=== PATIENT | male | born 1970 | race African-American/Black ===

== ENCOUNTER 2020-01-07 12:14 | Outpatient (CLI) | payer OTHER, SELFPAY ==
[2020-01-07 12:50] LABS: Basophils Percent Auto 0.3 % (0.2-1.2); Eosinophils Absolute Auto 0.1 K/mm3 (0-0.3); Eosinophils Percent Auto 1.9 % (0-4.4); Hematocrit 47.2 % (42.0-52.0); Hemoglobin 15.3 g/dL (14.0-18.0); Immature Granulocyte Absolute 0.02 K/mm3 (0.00-0.031); Immature Granulocyte Percent A 0.3 % (0-0.5); Lymphocytes Absolute Auto 2.05 K/mm3 (0.9-3.2); Lymphocytes Percent Auto 35.3 % (18.3-44.2); Mean Corpuscular HGB Conc 32.4 g/dl (32-36); Mean Corpuscular Hemoglobin 29.4 pg (26-34); Mean Corpuscular Volume 90.6 fl (80-100); Mean Platelet Volume 11.7 fl (7.4-10.4); Monocytes Absolute Auto 0.6 K/mm3 (0.1-0.6); Monocytes Percent Auto 10.7 % (2.6-8.5); Neutrophils Percent Auto 51.5 % (45.5-73.1); Platelet Count Result 277 k/mm3 (150-375); Red Blood Count 5.21 M/mm3 (4.6-6.20); Red Cell Distribution Width 14.6 % (11.5-14.5); White Blood Count 5.8 K/mm3 (4.5-10.0)
[2020-01-07 13:06] LABS: Alanine Aminotransferase 30 U/L (4-50); Albumin Level 4.4 g/dL (3.5-5.1); Alkaline Phosphatase 60 U/L (38-126); Amylase 85 U/L (30-110); Anion Gap 7 mmol/L (8-16); Aspartate Amino Transferase 25 U/L (17-59); Bilirubin,Total 0.6 mg/dL (0.2-1.3); Blood Urea Nitrogen 15 mg/dL (9-20); Carbon Dioxide 32 mmol/L (22-30); Chloride 105 mmol/L (98-107); Cholesterol 268 mg/dL (0-200); Estimated Glomerular Filt Rate > 60; Glucose 117 mg/dL (75-110); HDL Direct 39 mg/dL; Lipase 56 U/L (23-300); Potassium 4.8 mmol/L (3.4-5.0); Sodium 144 mmol/L (137-145); Triglycerides 187 mg/dL (<150)
[2020-01-07 13:16] LABS: LDL Cholesterol Direct 200 mg/dL
[2020-01-07 13:35] LABS: Prostate Specific Antigen 3.5 ng/mL (< OR = 4.0)
== END 2020-01-07 12:15 | disposition home or self-care (01) ==
LOC: ANHLAB 12:17
PROVIDERS: PCP Family Medicine; Visit Provider Nurse Practitioner Family
DX: Z12.5 Encounter for screening for malignant neoplasm of prostate (principal); Z13.220 Encounter for screening for lipoid disorders; R10.9 Unspecified abdominal pain; R03.0 Elevated blood-pressure reading, without diagnosis of hypertension
CPT/HCPCS: 36415; 80053; 80061; 82150; 83690; 84153; 85025; G0103

== ENCOUNTER 2020-09-03 15:28 | Outpatient (CLI) | payer OTHER, SELFPAY ==
--- NOTE | ~2020-09-03 | CT_ITS ---
EXAMINATION: CT abdomen pelvis w con DATE: 09/03/2020 16:16 INDICATION: Right upper quadrant pain and swelling. TECHNIQUE: Computed tomography (CT) of the abdomen and pelvis was performed with 100 cc Omnipaque 350 intravenous contrast. The dose-length product was 1303.97 mGy-cm. Automated exposure control and ite rative reconstruction technique were employed. COMPARISON: None. FINDINGS: Lung bases are unremarkable. No significant pleural or pericardial effusion. Heart size is normal. No significant vascular abnormality. No lymphadenopathy. Enlarged prostate gland. Mild bladde r wall thickening. No significant perivesical fatty infiltration. Fatty infiltration of the liver. The spleen, pancreas, adrenal glands and kidneys are unremarkable. N onobstructive bowel gas pattern. Normal appendix. Small fat-containing umbilical hernia. No significa nt bone or joint abnormality. IMPRESSION: 1. Enlarged prostate gland with mild bladder wall thickening, likely due to outlet obstruction. Consi shanelle cystitis in the appropriate clinical setting. Reviewed, dictated and finalized at location A. IMPRESSION: 1. Enlarged prostate gland with mild bladder wall thickening, likely due to out let obstruction. Consider cystitis in the appropriate clinical setting.
== END 2020-09-03 15:29 | disposition home or self-care (01) ==
PROVIDERS: PCP Family Medicine; Visit Provider Nurse Practitioner Family
DX: R19.01 Right upper quadrant abdominal swelling, mass and lump (principal); N40.0 Benign prostatic hyperplasia without lower urinary tract symptoms
CPT/HCPCS: 74177; Q9967

== ENCOUNTER 2020-09-08 14:05 | Outpatient (CLI) | payer OTHER, SELFPAY ==
[2020-09-08 14:48] LABS: Add Urine Microscopic? YES; Appearance Urine Clear (Clear); Bilirubin Urine Negative (Negative); Blood Urine Negative (Negative); Color Urine Yellow (Yellow); Glucose Urine UA Negative (Negative); Ketones Urine Negative (Negative); Leukocyte Esterase Ur Negative LEU/UL (Negative); Mucus Urine Rare /lpf; Nitrate Urine Negative (Negative); Protein Urine Negative (Negative); Specific Grav Ur 1.025 (1.001-1.035); Urobilinogen Urine Negative mg/dL (<2.0); WBC Urine 0-3 /hpf
[2020-09-08 16:50] LABS: Cholesterol 294 mg/dL (0-200); Creatine Kinase 146 U/L (55-170); HDL Direct 37 mg/dL; Triglycerides 296 mg/dL (<150)
[2020-09-08 17:05] LABS: LDL Cholesterol Direct 147 mg/dL
[2020-09-08 17:22] LABS: Prostate Specific Antigen 2.8 ng/mL (< OR = 4.0)
== END 2020-09-08 14:06 | disposition home or self-care (01) ==
PROVIDERS: PCP Family Medicine; Visit Provider Nurse Practitioner Family
DX: E78.5 Hyperlipidemia, unspecified (principal); Z79.899 Other long term (current) drug therapy; Z12.5 Encounter for screening for malignant neoplasm of prostate; R39.198 Other difficulties with micturition
CPT/HCPCS: 36415; 80061; 81001; 82550; 84153; G0103

== ENCOUNTER → 2020-10-20 00:45 | Outpatient (CLI) | payer OTHER, SELFPAY ==
[2020-10-20 17:38] LABS: SARS-CoV-2 RNA PCR Negative
== END ==
PROVIDERS: PCP Family Medicine; Visit Provider Surgery
DX: Z01.812 Encounter for preprocedural laboratory examination (principal); Z20.822 Contact with and (suspected) exposure to COVID-19
CPT/HCPCS: C9803; U0003; U0005

== ENCOUNTER 2020-10-23 00:36 | Day surgery (SDC) | payer OTHER, SELFPAY ==
[2020-10-22 08:15] VITALS: BMI 32.3
[2020-10-23 10:06] VITALS: BP 139/93; PULSE 88; RESP 20; TEMP 37.3; O2SAT 100
--- NOTE | 2020-10-23 11:06 | P.PNAN_ITS ---
Anes - Initial Pre Proc Eval Procedure: Operation Date: 10/23/20 12:30 Proposed Procedures p Umbilical Hernia Repair, Possible Mesh - Chino Johnson MD Date/Time: 10/23/20 11:06 Surgeon: Chino Johnson MD Pre Op Diagnosis: umbilical hernia Patient Data Age: 50 Gender: M Height: 1.8 m Weight: 105 kg Allergies Allergy/AdvReac Type Severity Reaction Status Date / Time No Known Allergies Allergy Verified 10/22/20 08:08 Home Medications Medication Instructions Recorded Confirmed Type ascorbic acid (vitamin C) 1 g PO DAILY 10/22/20 10/22/20 History atorvastatin [Lipitor] 40 mg PO HS 10/22/20 10/22/20 History cholecalciferol (vitamin D3) 125 mcg PO DAILY 10/22/20 10/22/20 History cyanocobalamin (vitamin B-12) 2,500 mcg PO DAILY 10/22/20 10/22/20 History potassium 99 mg PO DAILY PRN 10/22/20 10/22/20 History fhdsiha-yztp-adoef-oreg-capryl 1 cap PO DAILY 10/22/20 10/22/20 History vitamin A 2,400 mcg PO DAILY 10/22/20 10/22/20 History vitamin E 180 unit PO DAILY 10/22/20 10/22/20 History Patient hx anesthesia problems: none Family hx anesthesia problems: none PMFSH Past Medical History Medical History BMI 32.0-32.9,adult Cervical pain (neck) Dietary counseling and surveillance (06/27/17) Dizziness Encounter for screening for lipoid disorders Encounter for screening for malignant neoplasm of prostate Heart palpitations Mixed hyperlipidemia Other symptoms and signs involving emotional state Weak urinary stream Surgical History Surgical History H/O left inguinal hernia repair Family History Family History Mother Hypertension Family history of diabetes mellitus in first degree relative Polyp of stomach Father Heart disease Acute myocardial infarction Sibling No problems noted. 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 Questions were solicited and answers provided to the satisfaction of the patient/family/POA.
--- NOTE | 2020-10-23 11:29 | WPDHPUPDATE1 ---
History and Physical Update Update Date/Time: 10/23/20 11:29 History and Physical has been reviewed, including an updated exam of the patient. There are NO changes in the patient's condition. Risks, benefits, and alternatives have been discussed and questions answered. Patient agrees to proceed with procedure.
[2020-10-23] MEDS: ACETAMINOPHEN 500 MG TABLET 1000 MG PO (11:36)
[2020-10-23] MEDS: LACTATED RINGERS 1,000 ML 30 ML IV CONT ×2 (11:40→13:18)
[2020-10-23] MEDS: KETOROLAC 15 MG/ML VIAL (*BKC) IV PUSH (11:42)
[2020-10-23] MEDS: ceFAZolin 2 GM/D5W 50 ML 2 GM/50 ML BAG IVPB (12:13)
[2020-10-23 13:18] VITALS: BP 131/67; PULSE 108; RESP 14; O2SAT 96
--- NOTE | 2020-10-23 13:20 | P.OP_ITS ---
Procedure Note - Detailed Date of Procedure 10/23/20 Pre-op Diagnosis umbilical hernia Post-op Diagnosis same Procedure Performed Umbilical hernia repair with 4.6 cm Parietex underlay mesh Surgeon Chino Johnson MD Bonding Agent Leland FULLER Anesthesia general and local ( 0.5% Marcaine with epinephrine) Indications patient is a 50-year-old man with a small but symptomatic reducible umbilical hernia. He was seen in the office. He is taken to surgery now for repair possibly with mesh. Findings Patient had a small umbilical hernia but somewhat thin linea alba. 4.6 cm Parietex underlay mesh was used to strengthen the repair. Description of Procedure The patient was taken to surgery and induced into anesthesia with LMA. The abdomen was prepped and draped. The proposed incision was marked along the lower margin of the umbilicus. Local anesthetic was infiltrated in the area of the anticipated incision and in the subcutaneous tissues. Incision was made and dissection through the subcutaneous was carried out. We dissected down the umbilical stalk to the fascia. We dissected around the umbilicus and found the hernia. Further dissection around the umbilicus was carried out and eventually we divided the hernia sac and freed the umbilical skin from hernia. I then trimmed hernia sac from the umbilical skin. Local was infiltrated into the neck of the hernia. Cautery was used to divide the hernia sac and the herniated contents at the fascial origin. This tissue was discarded. The defect was small but the tissues did not appear to have the integrity to hold repair without reinforcing mesh. I made the opening a bit larger. 4.6 cm Parietex tulalip was chosen. It was placed in the defect and centered appropriately. Transfascial sutures were placed in the cranial and caudal midline. Once each was placed, they were both tied down. These had the effective drawing the edges of the hernia defect wards 1 another. I then closed the hernia defect with a [id number] mattress suture of 0 Ethibond. This suture also incorporated a bit of mesh. Additional local was infiltrated all around the area of the repair. The umbilical skin was sutured to the fascia with interrupted 3 0 Vicryl suture. Subcutaneous and subcuticular interrupted 3 0 and 4 0 Vicryl sutures were then placed. The wound was dressed with Exofin surgical adhesive. The patient was awakened and taken to recovery in good condition. Sponge and needle counts were correct x2. No complications were noted. Implants 4.6 cm Parietex mesh Estimated Blood Loss 5 Drains No Packing No Pathology none sent Complications None Condition stable Disposition same day
[2020-10-23 13:48] VITALS: BP 123/65; PULSE 99; RESP 14
[2020-10-23 14:00] VITALS: BP 134/75; PULSE 89; RESP 14
== END 2020-10-23 14:09 | disposition home or self-care (01) ==
PROVIDERS: PCP Family Medicine; Visit Provider Surgery
PROC: (CPT 49585; principal; 2020-10-23 12:30)
DX: K42.9 Umbilical hernia without obstruction or gangrene (principal); E78.2 Mixed hyperlipidemia; F17.210 Nicotine dependence, cigarettes, uncomplicated; F17.290 Nicotine dependence, other tobacco product, uncomplicated; E66.9 Obesity, unspecified; Z68.32 Body mass index [BMI] 32.0-32.9, adult
CPT/HCPCS: 49585; A9270; C1781; C9803; J0690; J1885; J2250; J2704; J3010; J7120; U0003; U0005

== ENCOUNTER 2021-08-06 13:12 | Emergency (ER) | payer OTHER, SELFPAY ==
--- NOTE | ~2021-08-06 | CT_ITS ---
EXAMINATION: CT abdomen pelvis w con INDICATION: Right lower quadrant pain TECHNIQUE: Computed tomographic images of the abdomen and pelvis were obtained after the administrati on of 100 cc of Omnipaque 350 intravenous contrast. The dose-length product (DLP) was 741.30 mGy-cm. Automated exposure control and iterative reconstruction technique were employed. COMPARISON: 09/03/2020 FINDINGS: Minimal dependent atelectasis is present in the lung bases. The heart size is normal. The l iver, spleen, pancreas, gallbladder, and adrenal glands are normal. The left kidney is unremarkable. There is a 4 mm stone of the right distal ureter which causes mild right hydroureteronephrosis and mi ldly decreased perfusion of the right kidney compared to the left. The prostate is enlarged enlarged. No pathologically enlarged abdominal or pelvic lymph nodes are identified. The appendix is normal. T here is no free intraperitoneal gas or evidence of bowel obstruction. There is a left inguinal hernia containing fat. Severe lumbar spondylosis is noted at L5-S1. IMPRESSION: 1. 4 mm stone of the right distal ureter causing mild right hydroureteronephrosis and mildly decrease d perfusion of the right kidney compared to the left. Reviewed, dictated and finalized at location B. IMPRESSION: 1. 4 mm stone of the right distal ureter causing mild right hydroureteronephros is and mildly decreased perfusion of the right kidney compared to the left.
[2021-08-06 13:19] VITALS: BP 180/105; PULSE 86; RESP 20; TEMP 36.9; O2SAT 100
[2021-08-06 13:42] LABS: Basophils Percent Auto 0.6 % (0.2-1.2); Eosinophils Absolute Auto 0.1 K/mm3 (0-0.3); Eosinophils Percent Auto 1.9 % (0-4.4); Hematocrit 46.3 % (42.0-52.0); Hemoglobin 14.9 g/dL (14.0-18.0); Immature Granulocyte Absolute 0.01 K/mm3 (0.00-0.031); Immature Granulocyte Percent A 0.2 % (0-0.5); Lymphocytes Absolute Auto 2.12 K/mm3 (0.9-3.2); Mean Corpuscular HGB Conc 32.2 g/dl (32-36); Mean Corpuscular Hemoglobin 29.7 pg (26-34); Mean Corpuscular Volume 92.2 fl (80-100); Mean Platelet Volume 11.6 fl (7.4-10.4); Monocytes Absolute Auto 0.7 K/mm3 (0.1-0.6); Monocytes Percent Auto 10.9 % (2.6-8.5); Neutrophils Absolute Auto 3.4 K/mm3 (1.3-6.7); Neutrophils Percent Auto 53.4 % (45.5-73.1); Platelet Count Result 269 k/mm3 (150-375); Red Blood Count 5.02 M/mm3 (4.6-6.20); Red Cell Distribution Width 15.2 % (11.5-14.5); White Blood Count 6.4 K/mm3 (4.5-10.0)
--- NOTE | 2021-08-06 13:43 | ED.ABDPAIN ---
HPI - Abdominal Pain General Chief Complaint: Abdominal Pain Stated Complaint: back/flank pain Time Seen by Provider: 08/06/21 13:40 Source: patient Mode of arrival: ambulatory Limitations: no limitations History of Present Illness HPI narrative: Patient is a 51-year-old male complaining of right lower quadrant pain, right flank pain, 7 out of 10, sharp, nonradiating started this morning. Patient denies any chest pain, shortness of breath, nausea, vomiting, diarrhea, urinary symptoms, fever or chills. Related Data Home Medications Medication Instructions Recorded Confirmed ascorbic acid (vitamin C) 1 g PO DAILY 10/22/20 01/20/21 atorvastatin [Lipitor] 40 mg PO HS 10/22/20 01/20/21 cholecalciferol (vitamin D3) 125 mcg PO DAILY 10/22/20 01/20/21 cyanocobalamin (vitamin B-12) 2,500 mcg PO DAILY 10/22/20 01/20/21 potassium 99 mg PO DAILY PRN 10/22/20 01/20/21 ddvwmpy-xllj-tuyec-oreg-capryl 1 cap PO DAILY 10/22/20 01/20/21 vitamin A 2,400 mcg PO DAILY 10/22/20 01/20/21 vitamin E 180 unit PO DAILY 10/22/20 01/20/21 finasteride 5 mg tablet 5 mg PO DAILY tablet 01/19/21 01/20/21 tamsulosin 0.4 mg capsule cap PO 01/19/21 01/20/21 Allergies Allergy/AdvReac Type Severity Reaction Status Date / Time No Known Allergies Allergy Verified 08/06/21 13:33 Review of Systems Review of Systems: All systems reviewed & are unremarkable except as noted in HPI and below Constitutional: Constitutional: Denies body ache(s), Denies chills, Denies excessive sweating, Denies fatigue, Denies fever(s), Denies headache(s), Denies lethargy, Denies malaise, Denies weakness and Denies weight loss Eyes: Eyes: Denies blurry vision, Denies change in vision and Denies loss of vision ENT: Denies dizziness, Denies ear discharge, Denies headache(s), Denies lip swelling, Denies epistaxis, Denies nasal congestion, Denies neck pain, Denies throat swelling and Denies tongue swelling Cardiovascular: Cardiovascular: Denies chest pain, Denies chest pain at rest, Denies chest pain with activity, Denies diaphoresis, Denies rapid heart rate, Denies edema, Denies irregular heart rhythm, Denies lightheadedness, Denies palpitations, Denies dyspnea and Denies dyspnea on exertion Respiratory: Respiratory: Denies chest congestion, Denies cough, Denies hemoptysis, Denies dyspnea and Denies dyspnea on exertion Gastrointestinal: Gastrointestinal: Denies melena, Denies hematochezia, Denies diarrhea, Denies nausea, Denies vomiting and Denies hematemesis Musculoskeletal: Musculoskeletal: Denies abnormal gait, Denies deformity, Denies joint swelling, Denies limited range of motion, Denies neck pain and Denies numbness Neurologic: Denies Abnormal speech present, Denies abnormal gait, Denies confusion, Denies dizziness, Denies headache(s), Denies focal weakness, Denies loss of vision, Denies numbness, Denies Other visual disturbances, Denies Sensory deficit (Neuro) and Denies weakness Psychiatric: Psychiatric: Denies confusion, Denies depression, Denies auditory hallucinations, Denies homicidal ideation and Denies suicidal ideation Endocrine: Endocrine: Denies cold intolerance, Denies excessive sweating, Denies fatigue, Denies heat intolerance and Denies palpitations Hematologic/Lymphatic: Hematologic/Lymphatic: Denies easy bleeding and Denies easy bruising Allergic/Immunologic: Allergic/Immunologic: Denies lip swelling, Denies throat swelling and Denies tongue swelling PMFSH Past Medical History Medical History BMI 32.0-32.9,adult Cervical pain (neck) Dietary counseling and surveillance (06/27/17) Dizziness Encounter for screening for lipoid disorders Encounter for screening for malignant neoplasm of prostate Heart palpitations Mixed hyperlipidemia Other symptoms and signs involving emotional state Weak urinary stream Surgical History Surgical History H/O left inguinal h
[2021-08-06 13:44] LABS: Alanine Aminotransferase 21 U/L (4-50); Albumin Level 4.4 g/dL (3.5-5.1); Alkaline Phosphatase 64 U/L (38-126); Anion Gap 5 mmol/L (8-16); Aspartate Amino Transferase 30 U/L (17-59); Bilirubin,Total 0.4 mg/dL (0.2-1.3); Blood Urea Nitrogen 12 mg/dL (9-20); Calcium 8.8 mg/dL (8.4-10.2); Carbon Dioxide 27 mmol/L (22-30); Chloride 108 mmol/L (98-107); Estimated CRCL calculation 70 ml/min; Estimated Glomerular Filt Rate > 60; Glucose 108 mg/dL (65-110); Lipase 69 U/L (23-300); Potassium 4.1 mmol/L (3.4-5.0); Sodium 140 mmol/L (137-145)
--- NOTE | 2021-08-06 13:51 | PC.NURSE ---
pt to CT scan at this time.
[2021-08-06 14:04] LABS: Add Urine Microscopic? YES; Appearance Urine Cloudy (Clear); Bilirubin Urine Negative (Negative); Blood Urine 3+ (Negative); Budding Yeast Urine Present /hpf; Color Urine Yellow (Yellow); Glucose Urine UA Negative (Negative); Ketones Urine Negative (Negative); Leukocyte Esterase Ur Negative LEU/UL (Negative); Mucus Urine Rare /lpf; Nitrate Urine Negative (Negative); Protein Urine 1+ mg/dL (Negative); RBC Urine >75 /hpf (0-2); Specific Grav Ur 1.021 (1.001-1.035); Urobilinogen Urine Negative mg/dL (<2.0); WBC Urine 0-3 /hpf
[2021-08-06 14:18] LABS: Atypical Lymphocytes Present; Platelet Estimate Adequate (Adequate)
[2021-08-06] MEDS: SODIUM CHLORIDE 0.9% IV 1,000 ML 999 ML IV CONT (14:21)
[2021-08-06] MEDS: HYDROmorphone HCL INJ (*CRX) 1 MG/ML SYR 0.5 MG IV PUSH (14:21)
[2021-08-06] MEDS: ONDANSETRON INJ 4 MG/2 ML VIAL IV PUSH (14:21)
[2021-08-06] MEDS: TAMSULOSIN HCL 0.4 MG CAPSULE PO (15:27)
[2021-08-06] MEDS: KETOROLAC 30 MG/ML VIAL (*BKC) IV PUSH (15:27)
[2021-08-06 16:52] VITALS: BP 131/82; PULSE 73; RESP 18; O2SAT 100
== END 2021-08-06 16:52 | disposition home or self-care (01) ==
PROVIDERS: Emergency Medicine; Emergency Provider Emergency Medicine; PCP Family Medicine
DX: N13.2 Hydronephrosis with renal and ureteral calculous obstruction (principal); E78.2 Mixed hyperlipidemia; F17.290 Nicotine dependence, other tobacco product, uncomplicated
CPT/HCPCS: 36415; 74177; 80053; 81001; 83690; 85025; 96361; 96374; 96375; 99284; A9270; J1170; J1885; J2405; J7030; Q9967

== ENCOUNTER 2022-04-20 14:40 | Outpatient (CLI) | payer OTHER, SELFPAY ==
--- NOTE | ~2022-04-20 | XR_ITS ---
EXAM: XR lumbar spine 2-3V DATE: 04/20/2022 15:05 HISTORY: M54.40 - Lumbago with sciatica,LLE NUMBNESS, LT SIDE LBP . COMPARISON: CT abdomen and pelvis 08/06/2021. FINDINGS: 5 nonrib-bearing lumbar-type vertebral bodies. Pedicles intact. 5 mm retrolisthesis at L5- S1, otherwise normal vertebral body alignment. Mild height loss at L5, unchanged. Remaining vertebral body heights are maintained. Moderate disc space narrowing at L5-S1 with vacuum disc phenomenon and prominent bridging osteophytosis. Remaining disc spaces normal. Mild facet sclerosis. No fracture or dislocation. IMPRESSION: Severe degenerative disc disease at L5-S1 with mild vertebral body height loss and a grad e 1 retrolisthesis. Reviewed, dictated and finalized at location K. NCE WRITER IMPRESSION: Severe degenerative disc disease at L5-S1 with mild vertebral body height loss and a grade 1 retrolisthesis.
== END 2022-04-20 14:41 | disposition home or self-care (01) ==
PROVIDERS: PCP Family Medicine; Visit Provider Nurse Practitioner Family
DX: M54.40 Lumbago with sciatica, unspecified side (principal); M51.37 Other intervertebral disc degeneration, lumbosacral region
CPT/HCPCS: 72100

== ENCOUNTER 2024-10-19 13:43 | Emergency (ER) | payer OTHER, SELFPAY ==
--- OUTSIDE RECORDS SUMMARY | 2024-10-19 13:45 | XMS_ITS | Continuity of Care Document ---
Author Name [facility] Organization 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 Unavailable Unavailable Problems Combined list of problems from [facility] facilities. It does not include entries that were removed or entered in error. Problem Status Onset Date Problem Type Date of Resolution Comments Source Benign prostatic hyperplasia Active Condition [facility] Esophageal Reflux (ICD-9-CM 530.81) Active Condition [facility] Essential hypertension Active Condition [facility] Pain in joint involving lower leg (ICD-9-CM 719.46) Active Condition [facility] Tobacco use (SNOMED CT [id number]) Active Condition [facility] Diagnosis: ICD-10-CM Z12.11 Encounter for screening for malignant neoplasm of colon Active Diagnosis [facility] Diagnosis: ICD-10-CM Z01.818 Encounter for other preprocedural examination Active Diagnosis [facility] Diagnosis: ICD-10-CM E78.49 Other hyperlipidemia Active Diagnosis [facility] Diagnosis: ICD-10-CM Z00.01 Encounter for general adult medical exam w abnormal findings Active Diagnosis [facility] Medications Combined list of outpatient medications from [facility] facilities.Medications provided include 1) outpatient medications from the last 15 months, and 2) patient-reported medications. Medication Details Route Status Patient Instructions Prescription Expires Prescription Number Last Dispense Date Ordering Provider Order Date Order Qty Source ATORVASTATI N CA 40MG TAB TAKE ONE-HALF TABLET BY MOUTH EVERY EVENING FOR HIGH CHOLESTE ROL ORAL 08/15/2024 [id number] DEPAULO,S UZANNE [address] [facility] BISACODYL 5MG TAB,EC TAKE TWO TABLETS BY MOUTH ONE TIME TAKE BISACODY L TABLETS AT 4PM ON AFTERNOO N PRIOR TO TEST. CALL [phone] WITH ANY QUESTION S ABOUT THESE INSTRUCT IONS. MAIL TAKE BISACODY L TABLETS AT 4PM ON AFTERNOO N PRIOR TO TEST. CALL [phone] WITH ANY QUESTION S ABOUT THESE INSTRUCT IONS. MAIL ORAL 09/10/2023 [id number] JOSEPH CUETO 2023 2 [facility] FINASTERIDE 5MG TAB TAKE ONE TABLET BY MOUTH ONCE A DAY ORAL ACTIVE DEPAULO,S UZANNE [address] [facility] GABAPENTIN 300MG CAP TAKE ONE CAPSULE BY MOUTH AT BEDTIME FOR NERVE PAIN ORAL 08/11/2024 [id number] 4 DEPAULO,S UZANNE [address] [facility] PEG-3350/EL ECTROLYTES PWDR MIX AND DRINK CONTENTS OF BOTTLE BY MOUTH DIRECTED (THE DAY BEFORE YOUR TEST ONLY DRINK CLEAR LIQUIDS- NO SOLID FOOD! TAKE THE BISACODY L TABLETS AT 4PM AND MIX THE GOLYTELY WITH WATER AND REFRIGER ATE. AT 7PM DRINK HALF OF THE GOLYTELY . REFRIGER ATE OVERNIGH T. COMPLETE GOLYTELY 3 HRS BEFORE LEAVING HOME FOR TEST. READ YOUR INSTRUCT IONS!) (THE DAY BEFORE YOUR TEST ONLY DRINK CLEAR LIQUIDS- NO SOLID FOOD! TAKE THE BISACODY L TABLETS AT 4PM AND MIX THE GOLYTELY WITH WATER AND REFRIGER ATE. AT 7PM DRINK HALF OF THE GOLYTELY . REFRIGER ATE OVERNIGH T. COMPLETE GOLYTELY 3 HRS BEFORE LEAVING HOME FOR TEST. READ YOUR INSTRUCT IONS!) ORAL 09/10/2023 [id number] JOSEPH CUETO 2023 1 [facility] SIMETHICONE 80MG TAB,CHEW CHEW AND SWALLOW FOUR TABLETS BY MOUTH DIRECTED CHEW AND SWALLOW 4 TABLETS DAY PRIOR AND 4 TABLETS DAY OF COLONOSC OPY (PLEASE FOLLOW COLONOSC OPY PREP INSTRUCT IONS PROVIDED TO YOU) CHEW AND SWALLOW 4 TABLETS DAY PRIOR AND 4 TABLETS DAY OF COLONOSC OPY (PLEASE FOLLOW COLONOSC OPY PREP INSTRUCT IONS PROVIDED TO YOU) ORAL 09/10/2023 [id number] JOSEPH CUETO 2023 8 [facility] Immunizations Combined list of available immunizations from the Department of Defense and Veterans Affairs facilities. Immunization Series Date Given Administered By Site Reaction Lot Number CVX Code Drug Assisted Living Nursing Director Status Comments Source TDAP 2008 115 complet ed Left Deltoid [facility] Results Combined list of recent chemistry, hematology and other laboratory results from Department of Defense and Veterans Affairs, ranging from 15 months to all on record, depending upon the facility. Order Name Results Value Reference Range Date Interpretation Specimen Comments Source HGA1C HEMOGLOBIN A1C/HEMOGLO BIN.TOTAL IN BLOOD 5.7 4.0 - 6.0 08/10 Specimen Type: BLOOD No comment entered. Ordering Provider: CLAUDIO RAHMAN Report Released Date/Time: August 11, 2023 01:15 PM Reporting Lab: [place] [id number] Performing Lab: [address] TSH W/ REFLEX FT4 (STL) THYROTROPIN [UNITS/VOLU ME] IN SERUM OR PLASMA 0.305 u[IU]/ mL 0.47 - 5 08/10 L Specimen Type: PLASMA No comment entered. Ordering Provider: CLAUDIO RAHMAN Report Released Date/Time: August 11, 2023 01:15 PM Reporting Lab: [facility] [address] [facility] [phone] Performing Lab: [address] [phone] TSH W/ REFLEX FT4 (STL) FREE T4(REFLEX) 1.11 ng/mL 0.7 - 1.48 08/10 Specimen Type: PLASMA No comment entered. Ordering Provider: CLAUDIO RAHMAN Report Released Date/Time: August 11, 2023 01:15 PM Reporting Lab: [place] [id number] [place] [phone] Performing Lab: [phone] [place] [address] VITAMIN D, 25-HYDROXY 25-HYDROXYV ITAMIN D3 [MASS/VOLUM E] IN SERUM OR PLASMA 22.0 ng/mL 30 - 96 08/10 L Specimen Type: SERUM Comment: The listed sex of this patient may not be a typical indication for this test. Therefore, reference ranges or interpretive criteria listed may not be valid. Clinical correlation suggested. Ordering Provider: CLAUDIO RAHMAN Report Released Date/Time: August 11, 2023 01:15 PM Reporting Lab: [address] [phone] Performing Lab: [address] PROST. SPECIFIC AG.(PB-STL ) PROSTATE SPECIFIC AG [MASS/VOLUM E] IN SERUM OR PLASMA 1.801 ng/mL 0 - 4 08/10 Specimen Type: SERUM Comment: The listed sex of this patient may not be a typical indication for this test. Therefore, reference ranges or interpretive criteria listed may not be valid. Clinical correlation suggested. Ordering Provider: CLAUDIO RAHMAN Report Released Date/Time: August 11, 2023 01:15 PM Reporting Lab: [address] [address] Performing Lab: [address] [phone] [place] [address] CBC LEUKOCYTES [#/VOLUME] IN BLOOD BY AUTOMATED COUNT 8.6 10*3/u L 3.6 - 11.2 08/10 Specimen Type: BLOOD No comment entered. Ordering Provider: CLAUDIO RAHMAN Report Released Date/Time: August 11, 2023 01:15 PM Reporting Lab: [address] [phone] Performing Lab: [place] [phone] [facility] CBC ERYTHROCYTE S [#/VOLUME] IN BLOOD BY AUTOMATED COUNT 4.90 10*6/u L 4.10 - 5.70 08/10 Specimen Type: BLOOD No comment entered. Ordering Provider: CLAUDIO RAHMAN Report Released Date/Time: August 11, 2023 01:15 PM Reporting Lab: [facility] [address] [place] [phone] Performing Lab: [facility] [address] [place] [phone] [facility] CBC HEMOGLOBIN [MASS/VOLUM E] IN BLOOD 14.5 g/dL 13.1 - 16.8 08/10 Specimen Type: BLOOD No comment entered. Ordering Provider: CLAUDIO RAHMAN Report Released Date/Time: August 11, 2023 01:15 PM Reporting Lab: [facility] [address] [place] [phone] Performing Lab: [facility] [address] [place] [phone] [facility] CBC HEMATOCRIT [VOLUME FRACTION] OF BLOOD 44.1 38.2 - 48.4 08/10 Specimen Type: BLOOD No comment entered. Ordering Provider: CLAUDIO RAHMAN Report Released Date/Time: August 11, 2023 01:15 PM Reporting Lab: [facility] [address] [place] [phone] Performing Lab: [facility] [address] [place] [phone] [facility] CBC MCV [ENTITIC VOLUME] BY AUTOMATED COUNT 90.0 fL 80.0 - 100.0 08/10 Specimen Type: BLOOD No comment entered. Ordering Provider: CLAUDIO RAHMAN Report Released Date/Time: August 11, 2023 01:15 PM Reporting Lab: [facility] [address] [place] [phone] Performing Lab: [facility] [address] [place] [phone] [facility] CBC MCH [ENTITIC MASS] BY AUTOMATED COUNT 29.6 pg 27.0 - 34.0 08/10 Specimen Type: BLOOD No comment entered. Ordering Provider: CLAUDIO RAHMAN Report Released Date/Time: August 11, 2023 01:15 PM Reporting Lab: [address] [phone] Performing Lab: [address] [phone] [facility] CBC MCHC [MASS/VOLUM E] BY AUTOMATED COUNT 32.9 g/dL 33.0 - 36.0 08/10 L Specimen Type: BLOOD No comment entered. Ordering Provider: CLAUDIO RAHMAN Report Released Date/Time: August 11, 2023 01:15 PM Reporting Lab: [address] [phone] Performing Lab: [address] [phone] [facility] CBC PLATELETS [#/VOLUME] IN BLOOD BY AUTOMATED COUNT 246 10*3/u L 150 - 400 08/10 Specimen Type: BLOOD No comment entered. Ordering Provider: CLAUDIO RAHMAN Report Released Date/Time: August 11, 2023 01:15 PM Reporting Lab: [address] [phone] Performing Lab: [address] [phone] [facility] CBC PLATELET MEAN VOLUME [ENTITIC VOLUME] IN BLOOD BY AUTOMATED COUNT 12.5 fL 7.5 - 11.2 08/10 H Specimen Type: BLOOD No comment entered. Ordering Provider: CLAUDIO RAHMAN Report Released Date/Time: August 11, 2023 01:15 PM Reporting Lab: [address] [phone] Performing Lab: [address] [place] [address] [facility] CBC ERYTHROCYTE DISTRIBUTIO N WIDTH [RATIO] BY AUTOMATED COUNT 14.9 11.8 - 15.1 08/10 Specimen Type: BLOOD No comment entered. Ordering Provider: CLAUDIO RAHMAN Report Released Date/Time: August 11, 2023 01:15 PM Reporting Lab: [facility] [address] [place] [phone] Performing Lab: [facility] [address] [facility] [address] [facility] CBC LYMPHOCYTES /100 LEUKOCYTES IN BLOOD BY AUTOMATED COUNT 37 08/10 Specimen Type: BLOOD No comment entered. Ordering Provider: CLAUDIO RAHMAN Report Released Date/Time: August 11, 2023 01:15 PM Reporting Lab: [facility] [address] [place] [phone] Performing Lab: [facility] [address] [facility] [address] [facility] CBC MONOCYTES/1 00 LEUKOCYTES IN BLOOD BY AUTOMATED COUNT 10 08/10 Specimen Type: BLOOD No comment entered. Ordering Provider: CLAUDIO RAHMAN Report Released Date/Time: August 11, 2023 01:15 PM Reporting Lab: [facility] [address] [facility] [address] Performing Lab: [facility] [address] [place] [phone] [facility] CBC NEUTROPHILS /100 LEUKOCYTES IN BLOOD BY AUTOMATED COUNT 50 08/10 Specimen Type: BLOOD No comment entered. Ordering Provider: CLAUDIO RAHMAN Report Released Date/Time: August 11, 2023 01:15 PM Reporting Lab: [facility] [address] [facility] [phone] Performing Lab: [facility] [address] [facility] [address] [facility] CBC EOSINOPHILS /100 LEUKOCYTES IN BLOOD BY AUTOMATED COUNT 2 08/10 Specimen Type: BLOOD No comment entered. Ordering Provider: CLAUDIO RAHMAN Report Released Date/Time: August 11, 2023 01:15 PM Reporting Lab: [facility] [address] [place] [phone] Performing Lab: [facility] [address] [place] [phone] [facility] CBC BASOPHILS/1 00 LEUKOCYTES IN BLOOD BY AUTOMATED COUNT 0 08/10 Specimen Type: BLOOD No comment entered. Ordering Provider: CLAUDIO RAHMAN Report Released Date/Time: August 11, 2023 01:15 PM Reporting Lab: [facility] [address] [place] [phone] Performing Lab: [address] [phone] CBC LYMPHOCYTES [#/VOLUME] IN BLOOD BY AUTOMATED COUNT 3.13 10*3/u L 0.77 - 4.50 08/10 Specimen Type: BLOOD No comment entered. Ordering Provider: CLAUDIO RAHMAN Report Released Date/Time: August 11, 2023 01:15 PM Reporting Lab: [facility] [address] [place] [phone] Performing Lab: [facility] [address] [place] [phone] [facility] CBC MONOCYTES [#/VOLUME] IN BLOOD BY AUTOMATED COUNT 0.88 10*3/u L 0.19 - 0.80 08/10 H Specimen Type: BLOOD No comment entered. Ordering Provider: CLAUDIO RAHMAN Report Released Date/Time: August 11, 2023 01:15 PM Reporting Lab: [facility] [address] [place] [phone] Performing Lab: [facility] [address] [place] [phone] [facility] CBC NEUTROPHILS [#/VOLUME] IN BLOOD BY AUTOMATED COUNT 4.30 10*3/u L 2.10 - 8.00 08/10 Specimen Type: BLOOD No comment entered. Ordering Provider: CLAUDIO RAHMAN Report Released Date/Time: August 11, 2023 01:15 PM Reporting Lab: [facility] [address] [place] [phone] Performing Lab: [facility] [address] [place] [phone] CBC EOSINOPHILS [#/VOLUME] IN BLOOD BY AUTOMATED COUNT 0.20 10*3/u L 0.00 - 0.60 08/10 Specimen Type: BLOOD No comment entered. Ordering Provider: CLAUDIO RAHMAN Report Released Date/Time: August 11, 2023 01:15 PM Reporting Lab: [facility] [address] [place] [phone] Performing Lab: [address] [phone] [place] [address] CBC BASOPHILS [#/VOLUME] IN BLOOD BY AUTOMATED COUNT 0.03 10*3/u L 0.00 - 0.20 08/10 Specimen Type: BLOOD No comment entered. Ordering Provider: CLAUDIO RAHMAN Report Released Date/Time: August 11, 2023 01:15 PM Reporting Lab: [facility] [address] [place] [phone] Performing Lab: [address] [phone] [place] [address] COMPREHENS DEMAR METABOLIC PANEL CREATININE [MASS/VOLUM E] IN SERUM OR PLASMA 1.43 mg/dL 0.7 - 1.3 08/10 H Specimen Type: PLASMA Comment: No hemolysis noted. Ordering Provider: CLAUDIO RAHMAN Report Released Date/Time: August 11, 2023 01:15 PM Reporting Lab: [facility] [address] [place] [phone] Performing Lab: [phone] [place] [address] COMPREHENS DEMAR METABOLIC PANEL UREA NITROGEN [MASS/VOLUM E] IN SERUM OR PLASMA 15.3 mg/dL 9.0 - 25.0 08/10 Specimen Type: PLASMA Comment: No hemolysis noted. Ordering Provider: CLAUDIO RAHMAN Report Released Date/Time: August 11, 2023 01:15 PM Reporting Lab: [place] [address] [facility] [phone] Performing Lab: [address] [phone] [place] [address] COMPREHENS DEMAR METABOLIC PANEL GLUCOSE [MASS/VOLUM E] IN SERUM OR PLASMA 90 mg/dL 72 - 99 08/10 Specimen Type: PLASMA Comment: No hemolysis noted. Ordering Provider: CLAUDIO RAHMAN Report Released Date/Time: August 11, 2023 01:15 PM Reporting Lab: [address] [phone] Performing Lab: [address] [phone] [facility] COMPREHENS DEMAR METABOLIC PANEL SODIUM [MOLES/VOLU ME] IN SERUM OR PLASMA 139 meq/L 136 - 145 08/10 Specimen Type: PLASMA Comment: No hemolysis noted. Ordering Provider: CLAUDIO RAHMAN Report Released Date/Time: August 11, 2023 01:15 PM Reporting Lab: [address] [phone] Performing Lab: [address] [phone] [facility] COMPREHENS DEMAR METABOLIC PANEL POTASSIUM [MOLES/VOLU ME] IN SERUM OR PLASMA 4.7 meq/L 3.5 - 5 08/10 Specimen Type: PLASMA Comment: No hemolysis noted. Ordering Provider: CLAUDIO RAHMAN Report Released Date/Time: August 11, 2023 01:15 PM Reporting Lab: [address] [phone] Performing Lab: [address] [place] [address] [facility] COMPREHENS DEMAR METABOLIC PANEL CHLORIDE [MOLES/VOLU ME] IN SERUM OR PLASMA 106 meq/L 98 - 107 08/10 Specimen Type: PLASMA Comment: No hemolysis noted. Ordering Provider: CLAUDIO RAHMAN Report Released Date/Time: August 11, 2023 01:15 PM Reporting Lab: [facility] [address] [place] [phone] Performing Lab: [facility] [address] [place] [phone] [place] [address] COMPREHENS DEMAR METABOLIC PANEL CARBON DIOXIDE, TOTAL [MOLES/VOLU ME] IN SERUM OR PLASMA 26 meq/L 22 - 31 08/10 Specimen Type: PLASMA Comment: No hemolysis noted. Ordering Provider: CLAUDIO RAHMAN Report Released Date/Time: August 11, 2023 01:15 PM Reporting Lab: [address] [phone] Performing Lab: [address] [phone] [place] [address] COMPREHENS DEMAR METABOLIC PANEL CALCIUM [MASS/VOLUM E] IN SERUM OR PLASMA 10.1 mg/dL 8.4 - 10.4 08/10 Specimen Type: PLASMA Comment: No hemolysis noted. Ordering Provider: CLAUDIO RAHMAN Report Released Date/Time: August 11, 2023 01:15 PM Reporting Lab: [facility] [address] [place] [phone] Performing Lab: [address] [address] [facility] COMPREHENS DEMAR METABOLIC PANEL PROTEIN [MASS/VOLUM E] IN SERUM OR PLASMA 7.7 g/dL 6 - 8.6 08/10 Specimen Type: PLASMA Comment: No hemolysis noted. Ordering Provider: CLAUDIO RAHMAN Report Released Date/Time: August 11, 2023 01:15 PM Reporting Lab: [facility] [address] [place] [phone] Performing Lab: [place] [address] [facility] [phone] [place] [address] COMPREHENS DEMAR METABOLIC PANEL ALBUMIN [MASS/VOLUM E] IN SERUM OR PLASMA 4.2 g/dL 3.4 - 5 08/10 Specimen Type: PLASMA Comment: No hemolysis noted. Ordering Provider: CLAUDIO RAHMAN Report Released Date/Time: August 11, 2023 01:15 PM Reporting Lab: [address] [phone] Performing Lab: [address] [phone] [place] [address] COMPREHENS DEMAR METABOLIC PANEL BILIRUBIN.T OTAL [MASS/VOLUM E] IN SERUM OR PLASMA 0.5 mg/dL 0.2 - 1.2 08/10 Specimen Type: PLASMA Comment: No hemolysis noted. Ordering Provider: CLAUDIO RAHMAN Report Released Date/Time: August 11, 2023 01:15 PM Reporting Lab: [address] [phone] Performing Lab: [address] [phone] [place] [address] COMPREHENS DEMAR METABOLIC PANEL ALKALINE PHOSPHATASE [ENZYMATIC ACTIVITY/VO LUME] IN SERUM OR PLASMA 63 U/L 40 - 150 08/10 Specimen Type: PLASMA Comment: No hemolysis noted. Ordering Provider: CLAUDIO RAHMAN Report Released Date/Time: August 11, 2023 01:15 PM Reporting Lab: [facility] [address] [place] [phone] Performing Lab: [address] [phone] [facility] COMPREHENS DEMAR METABOLIC PANEL ASPARTATE AMINOTRANSF ERASE [ENZYMATIC ACTIVITY/VO LUME] IN SERUM OR PLASMA 24 U/L 5 - 34 08/10 Specimen Type: PLASMA Comment: No hemolysis noted. Ordering Provider: CLAUDIO RAHMAN Report Released Date/Time: August 11, 2023 01:15 PM Reporting Lab: [facility] [address] [facility] [address] Performing Lab: [facility] [address] [place] [phone] [facility] COMPREHENS DEMAR METABOLIC PANEL ALANINE AMINOTRANSF ERASE [ENZYMATIC ACTIVITY/VO LUME] IN SERUM OR PLASMA 27 U/L 8 - 40 08/10 Specimen Type: PLASMA Comment: No hemolysis noted. Ordering Provider: CLAUDIO RAHMAN Report Released Date/Time: August 11, 2023 01:15 PM Reporting Lab: [facility] [address] [place] [phone] Performing Lab: [address] [phone] [place] [address] COMPREHENS DEMAR METABOLIC PANEL GLOMERULAR FILTRATION RATE/1.73 SQ M.PREDICTED [VOLUME RATE/AREA] IN SERUM, PLASMA OR BLOOD BY CREATININE- BASED FORMULA (CKD-EPI 2020) 59.0 60 08/10 Specimen Type: PLASMA Comment: No hemolysis noted. Ordering Provider: CLAUDIO RAHMAN Report Released Date/Time: August 11, 2023 01:15 PM Reporting Lab: [facility] [address] [place] [phone] Performing Lab: [facility] [address] [place] [phone] [place] [address] LIPID PANEL (STL) CHOLESTEROL [MASS/VOLUM E] IN SERUM OR PLASMA 261 mg/dL 0 - 200 08/10 H Specimen Type: PLASMA Comment: No hemolysis noted. Ordering Provider: CLAUDIO RAHMAN Report Released Date/Time: August 11, 2023 01:15 PM Reporting Lab: [facility] [address] [facility] [phone] Performing Lab: [facility] [address] [place] [phone] [facility] LIPID PANEL (STL) TRIGLYCERID E [MASS/VOLUM E] IN SERUM OR PLASMA 156 mg/dL 0 - 150 08/10 H Specimen Type: PLASMA Comment: No hemolysis noted. Ordering Provider: CLAUDIO RAHMAN Report Released Date/Time: August 11, 2023 01:15 PM Reporting Lab: [address] [phone] Performing Lab: [address] [phone] [facility] LIPID PANEL (STL) CHOLESTEROL IN LDL [MASS/VOLUM E] IN SERUM OR PLASMA BY CALCULATION 183 mg/dL 08/10 Specimen Type: PLASMA Comment: No hemolysis noted. Ordering Provider: CLAUDIO RAHMAN Report Released Date/Time: August 11, 2023 01:15 PM Reporting Lab: [address] [phone] Performing Lab: [address] [phone] [facility] LIPID PANEL (STL) CHOLESTEROL IN HDL [MASS/VOLUM E] IN SERUM OR PLASMA 47 mg/dL 40 08/10 Specimen Type: PLASMA Comment: No hemolysis noted. Ordering Provider: CLAUDIO RAHMAN Report Released Date/Time: August 11, 2023 01:15 PM Reporting Lab: [address] [address] Performing Lab: [address] [address] [facility] Encounters Combined list of: 1) Encounters from Department of [facility] Affairs facilities going backup to the last 18 months, not all [facility] inpatient encounters are included; 2) Encounters from the Department of Defense facilities going backup to 280 months. Location Location Details Encounter Type Encounter Number Reason For Visit Attending Provider ADM Date DC Date Status Disposition Source [facility] Outpatient Encounter [id number] 08/10 [facility] OFFICE O/P NEW MOD 45 MIN [id number] Diagnos is: ICD-10- CM Z00.01 Encount er for general adult medical exam w abnorma l finding s LACEYSINGLETARY OVIDIOSharita 08/10 [facility] Outpatient Encounter [id number] Diagnos is: ICD-10- CM Z12.11 Encount er for screeni ng for maligna nt neoplas m of colon BESTERNIEJOSEPH Vogt L 08/10 [facility] Outpatient Encounter [id number] MARYCARMEN CASTILLO M 08/13 [facility] HC PRO PHONE CALL 11-20 MIN [id number] Diagnos is: ICD-10- CM E78.49 Other hyperli pidemia JONATHAN,MARYCARMEN ISZE M 08/13 [facility] Outpatient Encounter [id number] 11/07 [facility] OFFICE O/P EST SF 10 MIN [id number] Diagnos is: ICD-10- CM Z12.11 Encount er for screeni ng for maligna nt neoplas m of colon JACLYN THOMPSON TTHEW H 11/08 [facility] OFFICE O/P EST LOW 20 MIN [id number] Diagnos is: ICD-10- CM Z01.818 Encount er for other preproc edural examina BONNIE Shukla IEL P 11/08 [facility] Outpatient Encounter [id number] 11/08 [facility] Outpatient Encounter [id number] YESSICA LIU 11/08 [facility] Outpatient Encounter [id number] LASHAWN TOPETE 11/09 [facility] Outpatient Encounter [id number] 11/16 [facility] Outpatient Encounter [id number] JACKY BRYSON 02/22 [facility] Outpatient Encounter [id number] 03/01 [facility] Outpatient Encounter [id number] 03/01 [facility] Social History Combined list of available smoking, tobacco, and other social history from [facility] of Defense and [facility] facilities. Social History Type Response Date Comment Sourc e Tobacco smoking status NHIS VA-TOBACCO USE MED NO 08/11/2023 Jaswinder [facility] History of tobacco use VA-TOBACCO USER E VERY DAY 08/11/2023 [facility] History of tobacco use [facility]ACCO [facility] 01/08/2009 [facility]
--- OUTSIDE RECORDS SUMMARY | 2024-10-19 13:45 | XMS_ITS | Encounter Summary ---
Author Name [facility] [place] [facility] [place] [facility] [place] Address [address] [place] [address] Care Team Providers Care Art Framing Manager Name Role Phone ELOISE RAHMAN Primary Care Provider Unavail le Insurance Providers: All historical and current Section Date Range: From patient's date of to the date document was created. This section includes the names of all active insurance providers for the patient. 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 Date/Time Encounter Type Encounter Description Reason Provider Source Nov 09, 2023 12:44 PM Outpatient Encounter ADMIN PAT ACTIVTIES (MASNONCT) VANESSA LIU E Encounter Template Text not used by [place] Plan of Treatment: Future Appointments (+ 6 months) and Future Tests (+/- 45 days) The Plan of Treatment section includes future care activities for the patient from all [place] [facility]. This section includes future appointments and future orders which are active, pending or scheduled. Future Appointments This section includes appointments that were scheduled to occur 6 months from the date of the Encounter, up to a maximum of 20 appointments. The data comes from all [facility] facilities. Appointment Date/Time Appointment Type Appointme nt Facility Name Mar 01, 2024 01:30 PM AMBULATORY - [facility] Social History: Smoking Status (Most current) and Tobacco Use (All prior to encounter date) This section includes the most current, and the historical, smoking and tobacco- related health factors from the [place] facility where the Encounter took place. Current Smoking Status This section includes the most current smoking, or tobacco-related health factor, from the [place] facility where the Encounter took place. Date/Time Current Smoking Status Comment Vu ity Jan 08, 2009 01:30 PM TOBACCO OFFERED [facility] Tobacco Use History This section includes a history of the smoking, or tobacco-related health factors, that were collected on or before the date of the Encounter. The data comes from the [place] facility where the Encounter took place. Date/Time Smoking Status/Tobacco Use Comment F flip Jan 08, 2009 01:30 PM TOBACCO OFFERED [facility] Pathology Reports: +/- 30 days of the encounter Pathology Reports For cases when an order for pathology services may have been completed prior to the date of the Encounter, the report list includes the Pathology Reports that were completed up to 30 days before dateof the Encounter. For cases when an order for pathology services may have been completed after the date of the Encounter, the report list also includes the Pathology Reports that were completed up to30 days after date of the Encounter. The data comes from all [facility]. Date/Time Pathology Report Provider Source Nov 10, 2023 02:31 PM [facility] SURGICAL PATHOL [facility]uel[facility] REPORT: LOCAL TITLE: LR SURGICAL PATHOLOGY REPORT STANDARD TITLE: PATHOLOGY PROCEDURE NOTE DATE OF NOTE: NOV 10, 2023@14:31:41 ENTRY DATE: NOV 10, 2023@14:31:41 AUTHOR: MALIKA TOPETE EXP COSIGNER: URGENCY: STATUS: COMPLETED $APHDR - - - - - - - - - - - - - - - - - - - - - - - - - - - - - - - - - - - - - - - - MEDICAL RECORD SURGICAL PATHOLOGY - - - - - - - - - - - - - - - - - - - - - - - - - - - - - - - - - - - - - - - - PATHOLOGY REPORT Accession No. SP [id number] - - - - - - - - - - - - - - - - - - - - - - - - - - - - - - - - - - - - - - - - $TEXT Submitted by: VERÓNICA ZAZUETA Date obtained: Nov 09, 2023 13:56 - - - - - - - - - - - - - - - - - - - - - - - - - - - - - - - - - - - - - - - - Specimen (Received Nov 09, 2023 13:57): A. ILEUM BIOPSIES - - - - - - - - - - - - - - - - - - - - - - - - - - - - - - - - - - - - - - - - BRIEF CLINICAL HISTORY: 53 yo male presenting for screening colonscopy - - - - - - - - - - - - - - - - - - - - - - - - - - - - - - - - - - - - - - - - PREOPERATIVE DIAGNOSIS: as above - - - - - - - - - - - - - - - - - - - - - - - - - - - - - - - - - - - - - - - - OPERATIVE FINDINGS: ileal ulcers and erythema - - - - - - - - - - - - - - - - - - - - - - - - - - - - - - - - - - - - - - - - POSTOPERATIVE DIAGNOSIS: as above Surgeon/physician: BRANDIE THOMPSON MD =-=-=-=-=-=-=-=-=-=-=-=-=-=-= -=-=-=-=-=-=-=-=-=-=-=-=-=-=- =-=-=-=-=-=-=-=-=-=-= - - - - - - - - - - - - - - - - - - - - - - - - - - - - - - - - - - - - - - - - PATHOLOGY REPORT Accession No. SP [id number] - - - - - - - - - - - - - - - - - - - - - - - - - - - - - - - - - - - - - - - - GROSS DESCRIPTION: Ann Guerra, 11/09/23 Received in formalin in a container labeled with the patient's full name, SSN, and Ileum Biopsies are four junior tissue fragments measuring from 0.3cm to 0.5cm in greatest dimension and 0.7 x 0.5 x 0.2cm in aggregate, which are submitted in toto in A1. MICROSCOPIC EXAM: Malika Topete MD 11/10/2023 Additional deeper levels were reviewed. Microscopic description substantiates final diagnosis. DIAGNOSIS: SMALL INTESTINE, ILEUM, BIOPSIES: - BENIGN SMALL BOWEL MUCOSA WITH INTACT VILLOUS ARCHITECTURE - NEGATIVE FOR INCREASED INTRAEPITHELIAL LYMPHOCYTES, ACUTE INFLAMMATION, DYSPLASIA OR MALIGNANCY /mony/ MALIKA TOPETE Pathologist Signed Nov 10, 2023@14:31 Performing Laboratory: Surgical Pathology Report [facility]formed By: [facility] [id number] [address] [place] [phone] $FTR - - - - - - - - - - - - - - - - - - - - - - - - - - - - - - - - - - - - - - - - (End of report) MALIKA TOPETE MD Date Nov 10, 2023 - - - - - - - - - - - - - - - - - - - - - - - - - - - - - - - - - - - - - - - - CAMILA ALEJO STANDARD FORM 515 ID:[id number] SEX:M :1970 AGE: 53 LOC:GILABA2 PCP: Eloise Rahman /sumit TOPETE Pathologist Signed: 11/10/2023 14:31 MALIKA TOPETE [facility] Encounter Notes: All associated encounter notes This section contains the clinical notes associated to the Encounter. Date/Time Encounter Note(s) Provider Source Nov 09, 2023 12:44 PM ANESTHESIOLOGY VANNA WSHEET: LOCAL TITLE: ANES INTRA-OP FLOWSHEET [facility] STANDARD TITLE: ANESTHESIOLOGY FLOWSHEET DATE OF NOTE: NOV 09, 2023@12:44 ENTRY DATE: NOV 09, 2023@12:44:13 AUTHOR: VANESSA LIU COSIGNER: URGENCY: STATUS: COMPLETED Patient: CAMILA ALEJO SSN: [id number] Date of Operation: 11/09/2023 Surgery Start Time: Surgery End Time: Anesthesia Care Start: 11/09/2023 12:08 Anesthesia Care End: 11/09/2023 12:43 Anesthesia Method: -- Monitored 11/09/2023 12:08 (Primary), Level Of Consciousness: Sedated, Monitors Applied, Oxygen Therapy: Mask, EtCO2 Verified: Waveform Positioning: Head Neutral, Head And Neck In Alignment With Spine, Pressure Points Padded & Checked, Eyes, Ears And Nose Free Of Pressure ASA Number: 2 Procedure: colonoscopy Diagnosis: screening Holding, Anesthesia, PACU Drugs: Lidocaine: 100 mg Propofol: 100 mg Propofol gtt: 263.183 mg Holding, Anesthesia, PACU Fluids: Normal Saline: 400 ml Resources: Headrest - Pillow Staff: --------- VANESSA LIU PRIN. ANES. GILLEN, DANIEL P, ANES. SUPER. Procedure Date: 11/09/2023 Procedure Start Time: 11/09/2023 12:15 Procedure End Time: 11/09/2023 12:39 /mony/ VANESSA LIU, [employer]ER [employer] P[employer]ER, Anesthesiology Signed: 11/09/2023 12:44 VANESSA LIU [facility]
[2024-10-19 13:46] VITALS: BP 158/101; PULSE 90; RESP 16; TEMP 36.6; O2SAT 100
--- OUTSIDE RECORDS SUMMARY | 2024-10-19 14:12 | XMS_ITS | Continuity of Care Document ---
Author Name [facility] Organization [facility] Care Team Providers Care Floor Attendant Name Role Phone [facility] Unavailable Unavailable Problems Combined list of problems from [facility] facilities. It does not include entries that were removed or entered in error. Problem Status Onset Date Problem Type Date of Resolution Comments Source Benign prostatic hyperplasia Active Condition [facility] Esophageal Reflux (ICD-9-CM 530.81) Active Condition [facility] Essential hypertension Active Condition [facility] Pain in joint involving lower leg (ICD-9-CM 719.46) Active Condition [facility] Tobacco use (SNOMED CT 680941416) Active Condition [facility] Diagnosis: ICD-10-CM Z12.11 Encounter for screening for malignant neoplasm of colon Active Diagnosis [facility] Diagnosis: ICD-10-CM Z01.818 Encounter for other preprocedural examination Active Diagnosis [facility] Diagnosis: ICD-10-CM E78.49 Other hyperlipidemia Active Diagnosis [facility] Diagnosis: ICD-10-CM Z00.01 Encounter for general adult medical exam w abnormal findings Active Diagnosis [facility] Medications Combined list of outpatient medications from [facility] facilities.Medications provided include 1) outpatient medications from the last 15 months, and 2) patient-reported medications. Medication Details Route Status Patient Instructions Prescription Expires Prescription Number Last Dispense Date Ordering Provider Order Date Order Qty Source ATORVASTATI N CA 40MG TAB TAKE ONE-HALF TABLET BY MOUTH EVERY EVENING FOR HIGH CHOLESTE ROL ORAL 08/15/2024 [id number] DEPAULO,S UZANNE 2023 45 [facility] BISACODYL 5MG TAB,EC TAKE TWO TABLETS BY MOUTH ONE TIME TAKE BISACODY L TABLETS AT 4PM ON AFTERNOO N PRIOR TO TEST. CALL WITH ANY QUESTION S ABOUT THESE INSTRUCT IONS. MAIL TAKE BISACODY L TABLETS AT 4PM ON AFTERNOO N PRIOR TO TEST. CALL [phone] WITH ANY QUESTION S ABOUT THESE INSTRUCT IONS. MAIL ORAL 09/10/2023 [id number] JOSEPH CUETO 2023 2 [facility] FINASTERIDE 5MG TAB TAKE ONE TABLET BY MOUTH ONCE A DAY ORAL ACTIVE DEPAULO,S UZANNE 2023 [facility] GABAPENTIN 300MG CAP TAKE ONE CAPSULE BY MOUTH AT BEDTIME FOR NERVE PAIN ORAL 08/11/2024 [id number] DEPAULO,S UZANNE 2023 90 [facility] PEG-3350/EL ECTROLYTES PWDR MIX AND DRINK CONTENTS [...] TEST. READ YOUR INSTRUCT IONS!) ORAL 09/10/2023 [id number] JOSEPH CUEOT 2023 1 [facility] SIMETHICONE 80MG TAB,CHEW CHEW AND SWALLOW FOUR TABLETS BY MOUTH DIRECTED CHEW AND SWALLOW 4 TABLETS DAY PRIOR AND 4 TABLETS DAY OF COLONOSC OPY (PLEASE FOLLOW COLONOSC OPY PREP INSTRUCT IONS PROVIDED TO YOU) CHEW AND SWALLOW 4 TABLETS DAY PRIOR AND 4 TABLETS DAY OF COLONOSC OPY (PLEASE FOLLOW COLONOSC OPY PREP INSTRUCT IONS PROVIDED TO YOU) ORAL 09/10/2023 [id number] JOSEPH CUETO 2023 8 [facility] Immunizations Combined list of available immunizations from the Department of Defense and Veterans Affairs facilities. Immunization Series Date Given Administered By Site Reaction Lot Number CVX Code Drug Import Export Clerk Status Comments Source TDAP 2008 115 complet ed Left Deltoid [facility] Results Combined list of recent chemistry, hematology and other laboratory results from Department of Defense and Veterans Affairs, ranging from 15 months to all on record, depending upon the facility. Order Name Results Value Reference Range Date Interpretation Specimen Comments Source CBC LEUKOCYTES [#/VOLUME] IN BLOOD BY AUTOMATED COUNT 8.6 10*3/u L 3.6 - 11.2 08/10 Specimen Type: BLOOD No comment entered. Ordering Provider: CLAUDIO RAHMAN Report Released Date/Time: August 11, 2023 01:15 PM Reporting Lab: [address] [address] Performing Lab: [address] [address] [place] [address] CBC ERYTHROCYTE S [#/VOLUME] IN BLOOD BY AUTOMATED COUNT 4.90 10*6/u L 4.10 - 5.70 08/10 Specimen Type: BLOOD No comment entered. Ordering Provider: CLAUDIO RAHMAN Report Released Date/Time: August 11, 2023 01:15 PM Reporting Lab: [address] [address] Performing Lab: [address] [address] [facility] CBC HEMOGLOBIN [MASS/VOLUM E] IN BLOOD 14.5 g/dL 13.1 - 16.8 08/10 Specimen Type: BLOOD No comment entered. Ordering Provider: CLAUDIO RAHMAN Report Released Date/Time: August 11, 2023 01:15 PM Reporting Lab: [address] [address] Performing Lab: [facility] [address] [facility] [address] [facility] CBC HEMATOCRIT [VOLUME FRACTION] OF BLOOD 44.1 38.2 - 48.4 08/10 Specimen Type: BLOOD No comment entered. Ordering Provider: CLAUDIO RAHMAN Report Released Date/Time: August 11, 2023 01:15 PM Reporting Lab: [facility] [address] Performing Lab: [place] [address] [facility] [address] [facility] CBC MCV [ENTITIC VOLUME] BY AUTOMATED COUNT 90.0 fL 80.0 - 100.0 08/10 Specimen Type: BLOOD No comment entered. Ordering Provider: CLAUDIO RAHMAN Report Released Date/Time: August 11, 2023 01:15 PM Reporting Lab: [facility] [address] Performing Lab: [address] [address] [facility] CBC MCH [ENTITIC MASS] BY AUTOMATED COUNT 29.6 pg 27.0 - 34.0 08/10 Specimen Type: BLOOD No comment entered. Ordering Provider: CLAUDIO RAHMAN Report Released Date/Time: August 11, 2023 01:15 PM Reporting Lab: [facility] [address] Performing Lab: [address] [address] [facility] CBC MCHC [MASS/VOLUM E] BY AUTOMATED COUNT 32.9 g/dL 33.0 - 36.0 08/10 L Specimen Type: BLOOD No comment entered. Ordering Provider: CLAUDIO RAHMAN Report Released Date/Time: August 11, 2023 01:15 PM Reporting Lab: [facility] [address] [place] [phone] Performing Lab: [facility] [address] [facility] [address] [facility] CBC PLATELETS [#/VOLUME] IN BLOOD BY AUTOMATED COUNT 246 10*3/u L 150 - 400 08/10 Specimen Type: BLOOD No comment entered. Ordering Provider: CLAUDIO RAHMAN Report Released Date/Time: August 11, 2023 01:15 PM Reporting Lab: [facility] [address] [facility] [address] Performing Lab: [facility] [address] [facility] [address] [facility] CBC PLATELET MEAN VOLUME [ENTITIC VOLUME] IN BLOOD BY AUTOMATED COUNT 12.5 fL 7.5 - 11.2 08/10 H Specimen Type: BLOOD No comment entered. Ordering Provider: CLAUDIO RAHMAN Report Released Date/Time: August 11, 2023 01:15 PM Reporting Lab: [facility] [address] [facility] [address] Performing Lab: [address] [address] [facility] CBC ERYTHROCYTE DISTRIBUTIO N WIDTH [RATIO] BY AUTOMATED COUNT 14.9 11.8 - 15.1 08/10 Specimen Type: BLOOD No comment entered. Ordering Provider: CLAUDIO RAHMAN Report Released Date/Time: August 11, 2023 01:15 PM Reporting Lab: [facility] [address] [facility] [address] Performing Lab: [facility] [address] [facility] [address] [facility] CBC LYMPHOCYTES /100 LEUKOCYTES IN BLOOD BY AUTOMATED COUNT 37 08/10 Specimen Type: BLOOD No comment entered. Ordering Provider: CLAUDIO RAHMAN Report Released Date/Time: August 11, 2023 01:15 PM Reporting Lab: [facility] [address] [facility] [address] Performing Lab: [facility] [address] [facility] [address] [facility] CBC MONOCYTES/1 00 LEUKOCYTES IN BLOOD BY AUTOMATED COUNT 10 08/10 Specimen Type: BLOOD No comment entered. Ordering Provider: CLAUDIO RAHMAN Report Released Date/Time: August 11, 2023 01:15 PM Reporting Lab: [facility] [address] [place] [phone] Performing Lab: [facility] [address] [place] [phone] [facility] CBC NEUTROPHILS /100 LEUKOCYTES IN BLOOD BY AUTOMATED COUNT 50 08/10 Specimen Type: BLOOD No comment entered. Ordering Provider: CLAUDIO RAHMAN Report Released Date/Time: August 11, 2023 01:15 PM Reporting Lab: [facility] [address] [place] [phone] Performing Lab: [facility] [address] [place] [phone] [facility] CBC EOSINOPHILS /100 LEUKOCYTES IN BLOOD BY AUTOMATED COUNT 2 08/10 Specimen Type: BLOOD No comment entered. Ordering Provider: CLAUDIO RAHMAN Report Released Date/Time: August 11, 2023 01:15 PM Reporting Lab: [facility] [address] [place] [phone] Performing Lab: [facility] [address] [place] [phone] [facility] CBC BASOPHILS/1 00 LEUKOCYTES IN BLOOD BY AUTOMATED COUNT 0 08/10 Specimen Type: BLOOD No comment entered. Ordering Provider: CLAUDIO RAHMAN Report Released Date/Time: August 11, 2023 01:15 PM Reporting Lab: [facility] [address] [place] [phone] Performing Lab: [facility] [address] [place] [phone] [facility] CBC LYMPHOCYTES [#/VOLUME] IN BLOOD BY AUTOMATED COUNT 3.13 10*3/u L 0.77 - 4.50 08/10 Specimen Type: BLOOD No comment entered. Ordering Provider: CLAUDIO RAHMAN Report Released Date/Time: August 11, 2023 01:15 PM Reporting Lab: [facility] [address] [place] [phone] Performing Lab: [address] [phone] [place] [address] CBC MONOCYTES [#/VOLUME] IN BLOOD BY AUTOMATED COUNT 0.88 10*3/u L 0.19 - 0.80 08/10 H Specimen Type: BLOOD No comment entered. Ordering Provider: CLAUDIO RAHMAN Report Released Date/Time: August 11, 2023 01:15 PM Reporting Lab: [address] [address] Performing Lab: [address] [phone] [place] [address] CBC NEUTROPHILS [#/VOLUME] IN BLOOD BY AUTOMATED COUNT 4.30 10*3/u L 2.10 - 8.00 08/10 Specimen Type: BLOOD No comment entered. Ordering Provider: CLAUDIO RAHMAN Report Released Date/Time: August 11, 2023 01:15 PM Reporting Lab: [address] [address] Performing Lab: [address] [phone] [place] [address] CBC EOSINOPHILS [#/VOLUME] IN BLOOD BY AUTOMATED COUNT 0.20 10*3/u L 0.00 - 0.60 08/10 Specimen Type: BLOOD No comment entered. Ordering Provider: CLAUDIO RAHMAN Report Released Date/Time: August 11, 2023 01:15 PM Reporting Lab: [address] [address] Performing Lab: [address] [address] [facility] CBC BASOPHILS [#/VOLUME] IN BLOOD BY AUTOMATED COUNT 0.03 10*3/u L 0.00 - 0.20 08/10 Specimen Type: BLOOD No comment entered. Ordering Provider: CLAUDIO RAHMAN Report Released Date/Time: August 11, 2023 01:15 PM Reporting Lab: [place] [address] [facility] [address] Performing Lab: [address] [phone] [place] [address] COMPREHENS DEMAR METABOLIC PANEL CREATININE [MASS/VOLUM E] IN SERUM OR PLASMA 1.43 mg/dL 0.7 - 1.3 08/10 H Specimen Type: PLASMA Comment: No hemolysis noted. Ordering Provider: CLAUDIO RAHMAN Report Released Date/Time: August 11, 2023 01:15 PM Reporting Lab: [address] [address] Performing Lab: [place] [address] [facility] [address] [facility] COMPREHENS DEMAR METABOLIC PANEL UREA NITROGEN [MASS/VOLUM E] IN SERUM OR PLASMA 15.3 mg/dL 9.0 - 25.0 08/10 Specimen Type: PLASMA Comment: No hemolysis noted. Ordering Provider: CLAUDIO RAHMAN Report Released Date/Time: August 11, 2023 01:15 PM Reporting Lab: [address] [address] Performing Lab: [address] [address] [facility] COMPREHENS DEMAR METABOLIC PANEL GLUCOSE [MASS/VOLUM E] IN SERUM OR PLASMA 90 mg/dL 72 - 99 08/10 Specimen Type: PLASMA Comment: No hemolysis noted. Ordering Provider: CLAUDIO RAHMAN Report Released Date/Time: August 11, 2023 01:15 PM Reporting Lab: [address] [address] Performing Lab: [facility] [address] [facility] [address] [facility] COMPREHENS DEMAR METABOLIC PANEL SODIUM [MOLES/VOLU ME] IN SERUM OR PLASMA 139 meq/L 136 - 145 08/10 Specimen Type: PLASMA Comment: No hemolysis noted. Ordering Provider: CLAUDIO RAHMAN Report Released Date/Time: August 11, 2023 01:15 PM Reporting Lab: [facility] [address] [facility] [address] Performing Lab: [facility] [address] [facility] [address] [facility] COMPREHENS DEMAR METABOLIC PANEL POTASSIUM [MOLES/VOLU ME] IN SERUM OR PLASMA 4.7 meq/L 3.5 - 5 08/10 Specimen Type: PLASMA Comment: No hemolysis noted. Ordering Provider: CLAUDIO RAHMAN Report Released Date/Time: August 11, 2023 01:15 PM Reporting Lab: [facility] [address] [facility] [address] Performing Lab: [facility] [address] [facility] [address] [facility] COMPREHENS DEMAR METABOLIC PANEL CHLORIDE [MOLES/VOLU ME] IN SERUM OR PLASMA 106 meq/L 98 - 107 08/10 Specimen Type: PLASMA Comment: No hemolysis noted. Ordering Provider: CLAUDIO RAHMAN Report Released Date/Time: August 11, 2023 01:15 PM Reporting Lab: [facility] [address] [facility] [address] Performing Lab: [facility] [address] [facility] [address] [facility] COMPREHENS DEMAR METABOLIC PANEL CARBON DIOXIDE, TOTAL [MOLES/VOLU ME] IN SERUM OR PLASMA 26 meq/L 22 - 31 08/10 Specimen Type: PLASMA Comment: No hemolysis noted. Ordering Provider: CLAUDIO RAHMAN Report Released Date/Time: August 11, 2023 01:15 PM Reporting Lab: [facility] [address] [facility] [address] Performing Lab: [facility] [address] [facility] [phone] [place] [address] COMPREHENS DEMAR METABOLIC PANEL CALCIUM [MASS/VOLUM E] IN SERUM OR PLASMA 10.1 mg/dL 8.4 - 10.4 08/10 Specimen Type: PLASMA Comment: No hemolysis noted. Ordering Provider: CLAUDIO RAHMAN Report Released Date/Time: August 11, 2023 01:15 PM Reporting Lab: [place] [address] [facility] [address] Performing Lab: [place] [address] [facility] [phone] [place] [address] COMPREHENS DEMAR METABOLIC PANEL PROTEIN [MASS/VOLUM E] IN SERUM OR PLASMA 7.7 g/dL 6 - 8.6 08/10 Specimen Type: PLASMA Comment: No hemolysis noted. Ordering Provider: CLAUDIO RAHMAN Report Released Date/Time: August 11, 2023 01:15 PM Reporting Lab: [place] [address] [facility] [address] Performing Lab: [place] [address] [facility] [phone] [place] [address] COMPREHENS DEMAR METABOLIC PANEL ALBUMIN [MASS/VOLUM E] IN SERUM OR PLASMA 4.2 g/dL 3.4 - 5 08/10 Specimen Type: PLASMA Comment: No hemolysis noted. Ordering Provider: CLAUDIO RAHMAN Report Released Date/Time: August 11, 2023 01:15 PM Reporting Lab: [facility] [address] Performing Lab: [address] [address] [facility] COMPREHENS DEMAR METABOLIC PANEL BILIRUBIN.T OTAL [MASS/VOLUM E] IN SERUM OR PLASMA 0.5 mg/dL 0.2 - 1.2 08/10 Specimen Type: PLASMA Comment: No hemolysis noted. Ordering Provider: CLAUDIO RAHMAN Report Released Date/Time: August 11, 2023 01:15 PM Reporting Lab: [facility] [address] [facility] [address] Performing Lab: [facility] [address] [facility] [address] [facility] COMPREHENS DEMAR METABOLIC PANEL ALKALINE PHOSPHATASE [ENZYMATIC ACTIVITY/VO LUME] IN SERUM OR PLASMA 63 U/L 40 - 150 08/10 Specimen Type: PLASMA Comment: No hemolysis noted. Ordering Provider: CLAUDIO RAHMAN Report Released Date/Time: August 11, 2023 01:15 PM Reporting Lab: [facility] [address] [facility] [address] Performing Lab: [facility] [address] [place] [address] [facility] COMPREHENS DEMAR METABOLIC PANEL ASPARTATE AMINOTRANSF ERASE [ENZYMATIC ACTIVITY/VO LUME] IN SERUM OR PLASMA 24 U/L 5 - 34 08/10 Specimen Type: PLASMA Comment: No hemolysis noted. Ordering Provider: CLAUDIO RAHMAN Report Released Date/Time: August 11, 2023 01:15 PM Reporting Lab: [facility] [address] [facility] [address] Performing Lab: [facility] [address] [place] [phone] [facility] COMPREHENS DEMAR METABOLIC PANEL ALANINE AMINOTRANSF ERASE [ENZYMATIC ACTIVITY/VO LUME] IN SERUM OR PLASMA 27 U/L 8 - 40 08/10 Specimen Type: PLASMA Comment: No hemolysis noted. Ordering Provider: CLAUDIO RAHMAN Report Released Date/Time: August 11, 2023 01:15 PM Reporting Lab: [facility] [address] [facility] [address] Performing Lab: [facility] [address] [place] [address] [facility] COMPREHENS DEMAR METABOLIC PANEL GLOMERULAR FILTRATION RATE/1.73 SQ M.PREDICTED [VOLUME RATE/AREA] IN SERUM, PLASMA OR BLOOD BY CREATININE- BASED FORMULA (CKD-EPI 2020) 59.0 60 08/10 Specimen Type: PLASMA Comment: No hemolysis noted. Ordering Provider: CLAUDIO RAHMAN Report Released Date/Time: August 11, 2023 01:15 PM Reporting Lab: [address] [address] Performing Lab: [address] [address] [facility] HGA1C HEMOGLOBIN A1C/HEMOGLO BIN.TOTAL IN BLOOD 5.7 4.0 - 6.0 08/10 Specimen Type: BLOOD No comment entered. Ordering Provider: CLAUDIO RAHMAN Report Released Date/Time: August 11, 2023 01:15 PM Reporting Lab: [address] [address] Performing Lab: [address] [address] [facility] LIPID PANEL (STL) CHOLESTEROL [MASS/VOLUM E] IN SERUM OR PLASMA 261 mg/dL 0 - 200 08/10 H Specimen Type: PLASMA Comment: No hemolysis noted. Ordering Provider: CLAUDIO RAHMAN Report Released Date/Time: August 11, 2023 01:15 PM Reporting Lab: [facility] [address] [place] [phone] Performing Lab: [facility] [address] [place] [phone] [facility] LIPID PANEL (STL) TRIGLYCERID E [MASS/VOLUM E] IN SERUM OR PLASMA 156 mg/dL 0 - 150 08/10 H Specimen Type: PLASMA Comment: No hemolysis noted. Ordering Provider: CLAUDIO RAHMAN Report Released Date/Time: August 11, 2023 01:15 PM Reporting Lab: [facility] [address] [place] [phone] Performing Lab: [place] [id number] [place] [phone] [place] [address] LIPID PANEL (STL) CHOLESTEROL IN LDL [MASS/VOLUM E] IN SERUM OR PLASMA BY CALCULATION 183 mg/dL 08/10 Specimen Type: PLASMA Comment: No hemolysis noted. Ordering Provider: CLAUDIO RAHMAN Report Released Date/Time: August 11, 2023 01:15 PM Reporting Lab: [place] [address] Performing Lab: [place] [phone] LIPID PANEL (STL) CHOLESTEROL IN HDL [MASS/VOLUM E] IN SERUM OR PLASMA 47 mg/dL 40 08/10 Specimen Type: PLASMA Comment: No hemolysis noted. Ordering Provider: CLAUDIO RAHMAN Report Released Date/Time: August 11, 2023 01:15 PM Reporting Lab: [place] [phone] Performing Lab: [place] [phone] PROST. SPECIFIC AG.(PB-STL ) PROSTATE SPECIFIC [...] August 11, 2023 01:15 PM Reporting Lab: [place] [address] Performing Lab: [address] TSH W/ REFLEX FT4 (STL) THYROTROPIN [UNITS/VOLU ME] IN SERUM OR PLASMA 0.305 u[IU]/ mL 0.47 - 5 08/10 L Specimen Type: PLASMA No comment entered. Ordering Provider: CLAUDIO RAHMAN Report Released Date/Time: August 11, 2023 01:15 PM Reporting Lab: [place] [phone] Performing Lab: [address] [phone] [place] [address] TSH W/ REFLEX FT4 (STL) FREE T4(REFLEX) 1.11 ng/mL 0.7 - 1.48 08/10 Specimen Type: PLASMA No comment entered. Ordering Provider: CLAUDIO RAHMAN Report Released Date/Time: August 11, 2023 01:15 PM Reporting Lab: [address] [address] Performing Lab: [address] VITAMIN D, 25-HYDROXY 25-HYDROXYV ITAMIN D3 [MASS/VOLUM [...] August 11, 2023 01:15 PM Reporting Lab: [address] [address] Performing Lab: [place] [address] [place] [address] Encounters Combined list of: 1) Encounters from Department of [facility] Affairs facilities going backup to the last 18 months, not all [facility] inpatient encounters are included; 2) Encounters from the Department of Defense facilities going backup to 280 months. Location Location Details Encounter Type Encounter Number Reason For Visit Attending Provider ADM Date DC Date Status Disposition Source [facility] Outpatient Encounter [id number] 08/10 [facility] OFF[facility] O/P NEW MOD 45 MIN [id number] Diagnos is: ICD-10- CM Z00.01 Encount er for general adult medical exam w abnorma l finding s LAECYSINGLETARY OVIDIOSharita 08/10 [facility] Outpatient Encounter [id number] Diagnos is: ICD-10- CM Z12.11 Encount er for screeni ng for maligna nt neoplas m of colon BESTERNIEJOSEPH Vogt L 08/10 [facility] Outpatient Encounter [id number] MARYCARMEN CASTILLO M 08/13 [facility] PRO PHONE CALL 11-20 MIN [id number] Diagnos is: ICD-10- CM E78.49 Other hyperli pidemia JONATHAN,MARYCARMEN ISZE M 08/13 [facility] Outpatient Encounter [id number] 11/07 [facility] OFFICE O/P EST SF 10 MIN [id number] Diagnos is: ICD-10- CM Z12.11 Encount er for screeni ng for maligna nt neoplas m of colon JACLYN THOMPSON TTHEW H 11/08 [facility] OFFICE O/P EST LOW 20 MIN [id number] Diagnos is: ICD-10- CM Z01.818 Encount er for other preproc edural examina BONNIE Shukla IEL P 11/08 [facility] Outpatient Encounter [id number] 11/08 [facility] Out[facility] Encounter [id number] YESSICA LIU 11/08 [facility] Outpatient Encounter [id number] LASHAWN TOPETE 11/09 [facility] Outpatient Encounter [id number] 11/16 [facility] Outpatient Encounter [id number] JACKY BRYSON 02/22 [facility] Outpatient Encounter [id number] 03/01 [facility] Out[facility]counter [id number] 03/01 [facility] Combined list of available smoking, tobacco, and other social history from [facility] and [facility] facilities. Social History Type Response Date Comment Sourc e Tobacco smoking status NHIS VA-TOBACCO USE MED NO 08/11/2023 [facility] History of tobacco use VA-TOBACCO USER E VERY DAY 08/11/2023 [facility] History of tobacco use TOBACCO OFFERED S [facility] 01/08/2009 [facility]
[2024-10-19 14:16] VITALS: BP 161/100; PULSE 89; RESP 16; O2SAT 100
--- NOTE | 2024-10-19 14:20 | ED.GENADULT ---
HPI - General Adult General Chief complaint: Headache Stated complaint: htn, headache Time Seen by Provider: 10/19/24 13:57 Source: patient, family and RN notes reviewed Mode of arrival: ambulatory Limitations: no limitations History of Present Illness HPI narrative: 54 y/o AAM in the ED today for c/o HTN X2-3 days. Pt states he was on BP med years ago, but cam off the meds w/ LSM, unsure of the med. Pt endorsed feeling off, intermittent dizziness and ROSENTHAL. Pt denies CP, SOB, ROS[place]HAL currently, dizziness currently, blurry vision, back pain, abd pain, N/V/D, or dysuria. Pt states his BP at home have been as high as 160-180s/100s. Pt tried to contact PCP, but was unable to get in. Related Data Home Medications ?Medication ?Instructions ?Recorded ?Confirmed ?Last Taken ?Type ascorbic acid (vitamin C) 1,000 mg 1 g PO DAILY 10/22/20 04/20/22 10/20/20 History tablet cholecalciferol (vitamin D3) 125 125 mcg PO DAILY 10/22/20 04/20/22 10/20/20 History mcg (5,000 unit) capsule cyanocobalamin (vitamin B-12) 2,500 mcg PO DAILY 10/22/20 04/20/22 10/20/20 History 2,500 mcg tablet potassium 99 mg tablet 99 mg PO DAILY PRN Menstrual Cramps 10/22/20 04/20/22 10/20/20 History turmeric 100 mg-roxann 150 1 cap PO DAILY 10/22/20 04/20/22 10/20/20 History mg-olive 50 mg-oreg 150 mg-capryl capsule vitamin A 2,400 mcg capsule 2,400 mcg PO DAILY 10/22/20 04/20/22 10/20/20 History vitamin E 100 unit tablet 180 unit PO DAILY 10/22/20 04/20/22 10/20/20 History finasteride 5 mg tablet 5 mg PO DAILY 01/19/21 04/20/22 Unknown History Allergies Allergy/AdvReac Type Severity Reaction Status Date / Time No Known Allergies Allergy Verified 10/19/24 13:51 Review of Systems Review of Systems: CONSTITUTIONAL: Denies fever, chills, or sweats. EYES: Denies visual changes, redness, or discharge. ENT: Denies rhinorrhea, congestion, sore throat, or otalgia. CARDIOVASCULAR: Endorses dizziness intermittently, none currently. Denies chest pain, palpitations, or edema. RESPIRATORY: Denies cough or dyspnea. GASTROINTESTINAL: Denies abdominal pain, nausea, vomiting, or diarrhea. GENITOURINARY: Denies dysuria or hematuria. SKIN: Denies rash or itching. MUSCULOSKELETAL: Denies back pain, joint pain, or myalgia. NEUROLOGIC: Endorses headache yesterday. Denies numbness, or weakness. PSYCHIATRIC: Denies anxiety or depression. [facility] Past Medical History Medical History History of kidney stones Encounter for other specified surgical aftercare Difficulty urinating Kidney stone RUQ abdominal mass Bloating Abdominal pain Umbilical hernia BMI 31.0-31.9,adult Cervical pain (neck) Dietary counseling and surveillance (06/27/17) Dizziness Encounter for screening for lipoid disorders Encounter for screening for malignant neoplasm of prostate Heart palpitations Mixed hyperlipidemia Other symptoms and signs involving emotional state Weak urinary stream BMI 32.0-32.9,adult Surgical History Surgical History History of hernia surgery H/O umbilical hernia repair H/O left inguinal hernia repair Family History Family History Mother Hypertension Family history of diabetes mellitus in first degree relative Polyp of stomach Father Heart disease Acute myocardial infarction Social History Social History Smoking packs per day: 0.5 Smoking cigarettes per day: 10.0 Years smoked: 2 Smoking pack-years: 1.00 Smoking status: Former smoker Tobacco type: cigarettes and cigars Smoking end date: 10/08/14 Additional smoking assessment comments: CONTINUES- CIGAR/WEEK, X 1 MONTH Alcohol intake: current Substance use: never Substance use type: does not use Living arrangements: alone Occupation/Education: occupation 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 HEAD: Normocephalic, atraumatic. EYES: PERRLA and EOMI. ENT: Nares clear, no rhinorrhea or epistaxis. Mucous membranes moist. NECK: Supple. CHEST: Clear to auscultation. No respiratory distress. HEART: Regular rate and rhythm. No murmur heard. Normal peripheral pulses. ABDOMEN: Soft, nontender, nondistended, normal active bowel sounds. EXTREMITIES: Normal range of motion. No edema. SKIN: Warm, dry, no rash. NEURO: No focal deficits. Alert and oriented x3. PSYCH: Normal mood and affect. Course Vital Signs Vital signs: Vital Signs Temperature 36.6 C 10/19/24 13:46 Pulse Rate 90 10/19/24 13:46 Respiratory Rate 16 10/19/24 13:46 Blood Pressure 158/101 H 10/19/24 13:46 Pulse Oximetry 100 10/19/24 13:46 Oxygen Delivery Room Air 10/19/24 13:46 Temperature 36.6 C 10/19/24 13:46 Pulse Rate 76 10/19/24 14:31 Respiratory Rate 14 10/19/24 14:31 Blood Pressure 147/94 H 10/19/24 15:01 Pulse Oximetry 100 10/19/24 15:01 Oxygen Delivery Room Air 10/19/24 13:46 Medical Decision Making MDM Narrative Medical decision making narrative: CBC and CMP within normal limits patient given 0.1 mg clonidine in the department blood pressure stable at 140 7/94 currently. Patient to be discharged with no meds and follow-up with primary care doctor within a week. Patient to take blood pressure at home no more than once a day, educated on how and when to take blood pressure. Differential Diagnosis Differential Diagnosis: Hypertensive emergency, anxiety, primary hypertension Medical Records Medical records reviewed: Yes I reviewed the external patient's medical records. Vital Signs Vital Signs: Vital Signs Temperature 36.6 C 10/19/24 13:46 Pulse Rate 90 10/19/24 13:46 Respiratory Rate 16 10/19/24 13:46 Blood Pressure 158/101 H 10/19/24 13:46 Pulse Oximetry 100 10/19/24 13:46 Oxygen Delivery Room Air 10/19/24 13:46 Temperature 36.6 C 10/19/24 13:46 Pulse Rate 76 10/19/24 14:31 Respiratory Rate 14 10/19/24 14:31 Blood Pressure 147/94 H 10/19/24 15:01 Pulse Oximetry 100 10/19/24 15:01 Oxygen Delivery Room Air 10/19/24 13:46 Lab Data Lab results reviewed: Yes I reviewed the patient's lab results. 10/19/24 14:36 10/19/24 14:36 Labs: Lab Results 10/19/24 Range/Units 14:36 WBC 7.2 (4.5-10.0) K/mm3 RBC 4.85 (4.6-6.20) M/mm3 Hgb 14.1 (14.0-18.0) g/dL Hct 43.8 (42.0-52.0) % MCV 90.3 (80-100) fl MCH 29.1 (26-34) pg MCHC 32.2 (32-36) g/dl RDW 15.3 H (11.5-14.5) % Plt Count 249 (150-375) k/mm3 MPV 11.5 H (7.4-10.4) fl Immature Gran % (Auto) 0.3 (0-0.5) % Neut % (Auto) 48.3 (45.5-73.1) % Lymph % (Auto) 39.0 (18.3-44.2) % [place] % (Auto) 10.3 H (2.6-8.5) % Eos % (Auto) 1.5 (0-4.4) % Baso % (Auto) 0.6 (0.2-1.2) % Lymph # (Auto) 2.81 (0.9-3.2) K/mm3 [place] # (Auto) 0.7 H (0.1-0.6) K/mm3 Eos # (Auto) 0.1 (0-0.3) K/mm3 Baso # (Auto) 0.0 (0.0-0.1) K/mm3 Abs Immat Gran (auto) 0.02 (0.00-0.031) K/mm3 Absolute Neuts (auto) 3.5 (1.3-6.7) K/mm3 Absolute Nucleated RBC 0.000 (0.0-0.012) K/mm3 Nucleated RBC % 0.0 (0.0-0.2) % Sodium 141 (137-145) mmol/L Potassium 4.1 (3.4-5.0) mmol/L Chloride 108 H (98-107) mmol/L Carbon Dioxide 26 (22-30) mmol/L Anion Gap 7 (4-12) mmol/L BUN 10 (9-20) mg/dL Creatinine 1.26 (0.7-1.3) mg/dL Estim Creat Clear Calc 74 ml/min Estimated GFR 60 (59 - ) Glucose 101 (65-110) mg/dL Calcium 9.3 (8.4-10.2) mg/dL Total Bilirubin 0.5 (0.2-1.3) mg/dL AST 30 (17-59) U/L ALT 29 (6-50) U/L Alkaline Phosphatase 49 (38-126) U/L Total Protein 7.7 (6.3-8.2) g/dL Albumin 4.1 (3.5-5.1) g/dL Discharge Plan Discharge Clinical Impression: Hypertension Qualifiers: Hypertension type: primary hypertension Qualified Code(s): I10 - Essential (primary) hypertension Patient Disposition: Home Condition: Stable Instructions: Antibiotic Form, Hypertension (ED) Additional Instructions: No medications at this time. Check blood pressure no more than once a day and document for primary care visit. Continue diet and exercise as current. Minimize salt intake as able, stay away from processed foods. Follow-up with primary care doc in 1 week. Patient Language: Senegalese Prescriptions: No Action finasteride 5 mg tablet 5 mg PO DAILY cyclobenzaprine 10 mg tablet 10 mg PO TID PRN (Reason: muscle spasm) Qty: 30 1RF ascorbic acid (vitamin C) 1,000 mg Tablet 1 g PO DAILY vitamin A 2,400 mcg Capsule 2,400 mcg PO DAILY potassium 99 mg Tablet 99 mg PO DAILY PRN (Reason: Menstrual Cramps) cholecalciferol (vitamin D3) 125 mcg (5,000 unit) Capsule 125 mcg PO DAILY vitamin E 100 unit Tablet 180 unit PO DAILY cyanocobalamin (vitamin B-12) 2,500 mcg Tablet 2,500 mcg PO DAILY dutufzhg-kwru-zxtda-oreg-capry 100 mg-150 mg- 50 mg-150 mg Capsule 1 cap PO DAILY Follow-up/Referrals: Kurtis Stanton MD [Primary Care Provider] -
[2024-10-19 14:31] VITALS: BP 162/97; PULSE 76; RESP 14; O2SAT 100
[2024-10-19 14:41] LABS: Hematocrit 43.8 % (42.0-52.0); Hemoglobin 14.1 g/dL (14.0-18.0); Immature Granulocyte Percent A 0.3 % (0-0.5); Lymphocytes Absolute Auto 2.81 K/mm3 (0.9-3.2); Mean Corpuscular HGB Conc 32.2 g/dl (32-36); Mean Corpuscular Hemoglobin 29.1 pg (26-34); Mean Corpuscular Volume 90.3 fl (80-100); Nucleated Red Blood Cells Absolute Auto 0.000 K/mm3 (0.0-0.012); Nucleated Red Blood Cells Perc 0.0 % (0.0-0.2); Platelet Count Result 249 k/mm3 (150-375); Red Blood Count 4.85 M/mm3 (4.6-6.20); White Blood Count 7.2 K/mm3 (4.5-10.0)
[2024-10-19 14:46] VITALS: BP 146/84; O2SAT 100
[2024-10-19 14:57] LABS: Alanine Aminotransferase 29 U/L (6-50); Albumin Level 4.1 g/dL (3.5-5.1); Alkaline Phosphatase 49 U/L (38-126); Anion Gap 7 mmol/L (4-12); Aspartate Amino Transferase 30 U/L (17-59); Bilirubin,Total 0.5 mg/dL (0.2-1.3); Blood Urea Nitrogen 10 mg/dL (9-20); Calcium 9.3 mg/dL (8.4-10.2); Carbon Dioxide 26 mmol/L (22-30); Chloride 108 mmol/L (98-107); Estimated CRCL calculation 74 ml/min; Estimated Glomerular Filt Rate 60; Glucose 101 mg/dL (65-110); Potassium 4.1 mmol/L (3.4-5.0); Sodium 141 mmol/L (137-145); Total Protein 7.7 g/dL (6.3-8.2)
[2024-10-19 15:01] VITALS: BP 147/94; O2SAT 100
[2024-10-19 16:00] VITALS: BP 141/91; PULSE 81; RESP 16; TEMP 36.6; O2SAT 100
== END 2024-10-19 16:01 | disposition home or self-care (01) ==
PROVIDERS: Emergency Provider Registered Nurse Emergency; PCP Family Medicine
DX: I10 Essential (primary) hypertension (principal); E78.2 Mixed hyperlipidemia; F17.290 Nicotine dependence, other tobacco product, uncomplicated; Z87.442 Personal history of urinary calculi
CPT/HCPCS: 36415; 80053; 85025; 99283; A9270

== ENCOUNTER 2025-01-30 00:27 | Emergency (ER) | payer OTHER, SELFPAY ==
[2025-01-30] VITALS (28 sets, daily range): BP systolic 140–180; BP diastolic 82–113; PULSE 66–82; RESP 12–24; TEMP 36.6–36.8; O2SAT 97–100
--- NOTE | 2025-01-30 01:03 | ED.ABDPAIN ---
HPI - Abdominal Pain General Chief Complaint: Abdominal Pain Stated Complaint: abd cramps Time Seen by Provider: 01/30/25 00:49 History of Present Illness HPI narrative: 54-year-old male with a past medical history including BPH, prior kidney stone, hypertension. Patient presents to the emergency department with epigastric abdominal cramping. States it started about 5:00 p.m. last night and describes as a squeezing sensation that lasts about a few moments and then alleviates. Tried some Tums without any relief. Did vomit 1 time. No chest pain shortness a breath. Pain is not consistent. No traumatic injuries. Recently started cephalexin and prednisone for recent allergic reaction to hair dye. Took the medications for 1 day and then started getting symptoms. No vomiting presently. No fever, chills, back pain. No urinary complaints, diarrhea, blood. Was otherwise in his normal state of health. Related Data Home Medications ?Medication ?Instructions ?Recorded ?Confirmed ?Last Taken ?Type ascorbic acid (vitamin C) 1,000 mg 1 g PO DAILY 10/22/20 01/30/25 10/20/20 History tablet cholecalciferol (vitamin D3) 125 125 mcg PO DAILY 10/22/20 01/30/25 10/20/20 History mcg (5,000 unit) capsule cyanocobalamin (vitamin B-12) 2,500 mcg PO DAILY 10/22/20 01/30/25 10/20/20 History 2,500 mcg tablet potassium 99 mg tablet 99 mg PO DAILY PRN Menstrual Cramps 10/22/20 01/30/25 10/20/20 History turmeric 100 mg-roxann 150 1 cap PO DAILY 10/22/20 01/30/25 10/20/20 History mg-olive 50 mg-oreg 150 mg-capryl capsule vitamin A 2,400 mcg capsule 2,400 mcg PO DAILY 10/22/20 01/30/25 10/20/20 History vitamin E 100 unit tablet 180 unit PO DAILY 10/22/20 01/30/25 10/20/20 History finasteride 5 mg tablet 5 mg PO DAILY 01/19/21 01/30/25 Unknown History Allergies Allergy/AdvReac Type Severity Reaction Status Date / Time black hair dye Allergy Severe Hives Uncoded 01/30/25 00:35 Review of Systems Review of Systems: As reviewed above in HPI PMFSH Past Medical History Medical History History of kidney stones Encounter for other specified surgical aftercare Difficulty urinating Kidney stone RUQ abdominal mass Bloating Abdominal pain Umbilical hernia BMI 31.0-31.9,adult Cervical pain (neck) Dietary counseling and surveillance (06/27/17) Dizziness Encounter for screening for lipoid disorders Encounter for screening for malignant neoplasm of prostate Heart palpitations Mixed hyperlipidemia Other symptoms and signs involving emotional state Weak urinary stream BMI 32.0-32.9,adult Surgical History Surgical History History of hernia surgery H/O umbilical hernia repair H/O left inguinal hernia repair Family History Family History Mother Hypertension Family history of diabetes mellitus in first degree relative Polyp of stomach Father Heart disease Acute myocardial infarction Social History Social History Smoking packs per day: 0.5 Smoking cigarettes per day: 10.0 Years smoked: 2 Smoking pack-years: 1.00 Smoking status: Current some day smoker Tobacco type: cigarettes and cigars Smoking end date: 10/08/14 Additional smoking assessment comments: CONTINUES- CIGAR/WEEK, X 1 MONTH Alcohol intake: current Substance use: never Substance use type: does not use Do You Feel Safe in your Home?: Yes Lack of Transportation: No Lack of Food: Never True Current Housing: I Have Housing Concerned About Future Housing: No Difficulty Paying Gas/Electric Bills: No Difficulty Paying for Meds: No Currently Unemployed: No Difficulty w/ Childcare or Family Care: No Living arrangements: alone Occupation/Education: occupation 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 Mucous membranes moist. NECK: Supple. CHEST: [Clear to auscultation. No respiratory distress.] HEART: [Regular rate and rhythm]. No murmur heard. [Normal peripheral pulses.] ABDOMEN: Soft and nondistended, mildly tender, in the epigastrium but no palpable masses, no rigidity or guarding EXTREMITIES: Normal range of motion. [No edema.] SKIN: Warm, dry, no rash. NEURO: [No focal deficits]. Alert and oriented [x3.] PSYCH: [Normal mood and affect.] Course Vital Signs Vital signs: Vital Signs Temperature 36.6 C 01/30/25 00:31 Pulse Rate 74 01/30/25 00:31 Respiratory Rate 17 01/30/25 00:31 Blood Pressure 180/113 H 01/30/25 00:31 Pulse Oximetry 100 01/30/25 00:31 Oxygen Delivery Room Air 01/30/25 00:31 Temperature 36.8 C 01/30/25 03:26 Pulse Rate 78 01/30/25 03:26 Respiratory Rate 16 01/30/25 03:26 Blood Pressure 151/89 H 01/30/25 03:26 Pulse Oximetry 98 01/30/25 03:26 Oxygen Delivery Room Air 01/30/25 00:31 MDM - Abdominal Pain MDM Narrative Medical decision making narrative: 54-year-old male with a past medical history including BPH, prior kidney stone, hypertension. Patient presents to the emergency department with epigastric abdominal cramping. States it started about 5:00 p.m. last night and describes as a squeezing sensation that lasts about a few moments and then alleviates. Tried some Tums without any relief. Did vomit 1 time. No chest pain shortness a breath. Pain is not consistent. No traumatic injuries. Recently started cephalexin and prednisone for recent allergic reaction to hair dye. Took the medications for 1 day and then started getting symptoms. No vomiting presently. No fever, chills, back pain. No urinary complaints, diarrhea, blood. Was otherwise in his normal state of health. Current blood pressure 161/96. Seventy-one heart rate, 100% on room air. Afebrile. He has some mild reproducible epigastric tenderness but no distension, Kras nausea vomiting. No current symptoms but states they come in waves. Likely gastritis or potential ulcer especially with his recent steroid use. Low suspicion gastroenteritis or infectious pathology, pancreatitis, kidney stone, cholecystitis. Basic laboratory studies obtained. He will be given Pepcid, Toradol, Zofran, Maalox and re-evaluated. Patient has a slight leukocytosis of 14.2 but is currently on steroids and already on antibiotics. No anemia. Normal platelet count. Electrolytes are largely unremarkable. Creatinine slightly worse than his prior levels but has had elevations in the past. Glucose 132. Normal LFTs. Negative troponin. Lipase normal. Urinalysis unremarkable. EKG shows sinus rhythm without any ST concerns at this time. Patient re-evaluated after Maalox and Pepcid and had significant improvement. No longer symptomatic. Hemodynamically stable. Likely medication side effect from his steroids causing some vague abdominal discomfort as he has no pain at this time after treatments and overall unremarkable workup. Discussed this with the patient and plan will be to discontinue steroids as he is no longer having any signs of an allergic reaction and to prescribe him Pepcid Maalox as needed. Patient comfortable the plan will follow-up with primary care provider. Encouraged to continue his antibiotics to completion. Medical Records Attestation: I reviewed the patient's medical records. Lab Data Attestation: I reviewed the patient's lab results. 01/30/25 00:37 01/30/25 00:37 Labs: Lab Results 01/30/25 01/30/25 Range/Units 00:37 02:16 WBC 14.2 H (4.5-10.0) K/mm3 RBC 5.31 (4.6-6.20) M/mm3 Hgb 15.4 (14.0-18.0) g/dL Hct 47.8 (42.0-52.0) % MCV 90.0 (80-100) fl MCH 29.0 (26-34) pg MCHC 32.2 (32-36) g/dl RDW 15.2 H (11.5-14.5) % Plt Count 301 (150-375) k/mm3 MPV 12.3 H (7.4-10.4) fl Immature Gran % (Auto) 0.4 (0-0.5) % Neut % (Auto) 65.4 (45.5-73.1) % Lymph % (Auto) 25.2 (18.3-44.2) % [place] % (Auto) 7.2 (2.6-8.5) % Eos % (Auto) 1.6 (0-4.4) % Baso % (Auto) 0.2 (0.2-1.2) % Lymph # (Auto) 3.57 H (0.9-3.2) K/mm3 [place] # (Auto) 1.0 H (0.1-0.6) K/mm3 Eos # (Auto) 0.2 (0-0.3) K/mm3 Baso # (Auto) 0.0 (0.0-0.1) K/mm3 Abs Immat Gran (auto) 0.06 H (0.00-0.031) K/mm3 Absolute Neuts (auto) 9.3 H (1.3-6.7) K/mm3 Absolute Nucleated RBC 0.000 (0.0-0.012) K/mm3 Nucleated RBC % 0.0 (0.0-0.2) % Sodium 141 (137-145) mmol/L Potassium 4.3 (3.4-5.0) mmol/L Chloride 104 (98-107) mmol/L Carbon Dioxide 28 (22-30) mmol/L Anion Gap 9 (4-12) mmol/L BUN 19 (9-20) mg/dL Creatinine 1.54 H (0.7-1.3) mg/dL Estim Creat Clear Calc 62 ml/min Estimated GFR 47 L (59 - ) Glucose 132 H (65-110) mg/dL Calcium 9.8 (8.4-10.2) mg/dL Total Bilirubin 0.3 (0.2-1.3) mg/dL AST 34 (17-59) U/L ALT 20 (6-50) U/L Alkaline Phosphatase 64 (38-126) U/L Troponin I < 0.012 (0.000-0.034) ng/mL Total Protein 8.6 H (6.3-8.2) g/dL Albumin 4.8 (3.5-5.1) g/dL Lipase 89 (23-300) U/L Urine Color Yellow (Yellow) Urine Appearance Cloudy H (Clear) Urine pH 5.5 (5.0-9.0) Ur Specific [place] 1.025 (1.001-1.035) Urine Protein Negative (Negative) mg/dL Urine Glucose (UA) Negative (Negative) mg/dL Urine Ketones Trace H (Negative) mg/dL Ur Blood (Man) Negative (Negative) Urine Nitrate Negative (Negative) Urine Bilirubin Negative (Negative) Urine Urobilinogen 0.2 (<2.0) mg/dL Leukocyte Esterase Rfl Negative (Negative) [place]/UL Urine RBC 0-2 (0-2) /hpf Urine WBC 0-5 (0-3) /hpf Ur Squamous Epith Cells None seen (Few) /hpf Urine Bacteria None seen /hpf Urine Casts 0-2 Discharge Plan Discharge Clinical Impression: Abdominal cramping, Medication side effect Patient Disposition: Home Condition: Stable Instructions: Antibiotic Form, Abdominal Pain (ED) Additional Instructions: Your symptoms sound like they could be related to the steroids that your currently taking for a mild allergic reaction. No emergent concerns found today in your symptoms improved with symptom controlling medications which we will send you home with. If you have any worsening or changing quality rib pain, inability to tolerate oral intake, intractable fevers or any other concerns please return to the emergency department otherwise follow-up with regular primary care provider. Recommendations at this time to stop taking the steroids but continue taking your antibiotics to completion and follow-up with your regular doctor. Patient Language: Qatari Prescriptions: New alum-mag hydroxide-simeth [Maalox Advanced] 200-200-20 mg/5 mL suspension 15 ml PO QID PRN (Reason: indigestion) Qty: 3000 0RF Rx Instructions: administer between meals and at bedtime famotidine [Pepcid] 20 mg tablet 20 mg PO BID Qty: 20 0RF ondansetron 4 mg tablet,disintegrating 4 mg PO Q8H PRN (Reason: nausea and vomiting) Qty: 10 0RF No Action finasteride 5 mg tablet 5 mg PO DAILY amlodipine [Norvasc] 5 mg tablet 5 mg PO DAILY Qty: 90 2RF trazodone 50 mg tablet 50 mg PO QHS PRN (Reason: sleep) Qty: 30 2RF Rx Instructions: take 1-2 hours before bed ascorbic acid (vitamin C) 1,000 mg Tablet 1 g PO DAILY vitamin A 2,400 mcg Capsule 2,400 mcg PO DAILY potassium 99 mg Tablet 99 mg PO DAILY PRN (Reason: Menstrual Cramps) cholecalciferol (vitamin D3) 125 mcg (5,000 unit) Capsule 125 mcg PO DAILY vitamin E 100 unit Tablet 180 unit PO DAILY cyanocobalamin (vitamin B-12) 2,500 mcg Tablet 2,500 mcg PO DAILY gcjsaaok-uzrj-arqcl-oreg-capry 100 mg-150 mg- 50 mg-150 mg Capsule 1 cap PO DAILY Follow-up/Referrals: Kurtis Stanton MD [Primary Care Provider, [facility]] Time of Disposition: 03:19
[2025-01-30 01:04] LABS: Alanine Aminotransferase 20 U/L (6-50); Albumin Level 4.8 g/dL (3.5-5.1); Alkaline Phosphatase 64 U/L (38-126); Anion Gap 9 mmol/L (4-12); Aspartate Amino Transferase 34 U/L (17-59); Bilirubin,Total 0.3 mg/dL (0.2-1.3); Blood Urea Nitrogen 19 mg/dL (9-20); Calcium 9.8 mg/dL (8.4-10.2); Carbon Dioxide 28 mmol/L (22-30); Chloride 104 mmol/L (98-107); Estimated CRCL calculation 62 ml/min; Estimated Glomerular Filt Rate 47; Glucose 132 mg/dL (65-110); Lipase 89 U/L (23-300); Potassium 4.3 mmol/L (3.4-5.0); Sodium 141 mmol/L (137-145); Total Protein 8.6 g/dL (6.3-8.2)
--- NOTE | 2025-01-30 01:05 | ECG_ITS ---
Test Date: 2025-01-30 01:31:54 Measurements Intervals [place] Rate: 73 P: 51 KS: 162 QRS: 1 QRSD: 92 T: 15 QT: 346 QTc: 381 Interpretive Statements SINUS RHYTHM VOLTAGE CRITERIA FOR LVH NONSPECIFIC ST & T-WAVE ABNORMALITY- INFERIOR LEADS BASELINE ARTIFACT- I, II, III, AVR, AVL, AVF BORDERLINE ECG No previous ECG available for comparison Electronically Signed On 01-30-2025 05:11:46 CDT by Darwin Ascencio D.O.
[2025-01-30 01:16] LABS: Hematocrit 47.8 % (42.0-52.0); Hemoglobin 15.4 g/dL (14.0-18.0); Immature Granulocyte Percent A 0.4 % (0-0.5); Lymphocytes Absolute Auto 3.57 K/mm3 (0.9-3.2); Mean Corpuscular HGB Conc 32.2 g/dl (32-36); Mean Corpuscular Hemoglobin 29.0 pg (26-34); Mean Corpuscular Volume 90.0 fl (80-100); Nucleated Red Blood Cells Absolute Auto 0.000 K/mm3 (0.0-0.012); Nucleated Red Blood Cells Perc 0.0 % (0.0-0.2); Platelet Count Result 301 k/mm3 (150-375); Red Blood Count 5.31 M/mm3 (4.6-6.20); White Blood Count 14.2 K/mm3 (4.5-10.0)
[2025-01-30] MEDS: LACTATED RINGERS 1,000 ML 999 ML IV CONT (01:28)
[2025-01-30] MEDS: FAMOTIDINE 20 MG/2 ML VIAL IV PUSH (01:29)
[2025-01-30] MEDS: ONDANSETRON INJ 4 MG/2 ML VIAL IV PUSH (01:29)
[2025-01-30] MEDS: KETOROLAC 15 MG/ML VIAL (*BKC) IV PUSH (01:29)
[2025-01-30] MEDS: MAG HYDROX/AL HYDROX/SIMETH 30 ML UDC PO (01:29)
[2025-01-30 02:12] LABS: Troponin I < 0.012 ng/mL (0.000-0.034)
[2025-01-30 02:43] LABS: Add Urine Microscopic? YES; Appearance Urine Cloudy (Clear); Glucose Urine UA Negative (Negative); Leukocyte Esterase Ur Negative LEU/UL (Negative); Nitrate Urine Negative (Negative); Non Pathogenic Casts 0-2; Specific Grav Ur 1.025 (1.001-1.035)
== END 2025-01-30 03:28 | disposition home or self-care (01) ==
PROVIDERS: Emergency Provider Student in an Organized Health Care Education/Training Program; PCP Family Medicine
DX: R10.13 Epigastric pain (principal); T38.0X5A Adverse effect of glucocorticoids and synthetic analogues, initial encounter; I10 Essential (primary) hypertension; E78.2 Mixed hyperlipidemia; N40.0 Benign prostatic hyperplasia without lower urinary tract symptoms; F17.290 Nicotine dependence, other tobacco product, uncomplicated; Z87.442 Personal history of urinary calculi; R94.31 Abnormal electrocardiogram [ECG] [EKG]
CPT/HCPCS: 36415; 80053; 81001; 83690; 84484; 85025; 93005; 96361; 96374; 96375; 99284; A9270; J1885; J2405; J7120

== ENCOUNTER 2025-01-31 04:42 | Inpatient (IN) | payer OTHER, SELFPAY ==
[2025-01-31] VITALS (27 sets, daily range): BP systolic 118–155; BP diastolic 62–87; PULSE 76–89; RESP 12–23; TEMP 36.6–37.2; O2SAT 94–100; BMI 32.8
--- NOTE | ~2025-01-31 | CT_ITS ---
EXAMINATION: CT abdomen pelvis w con DATE: 01/31/2025 06:00 INDICATION: Abdominal pain TECHNIQUE: Computed tomography (CT) of the abdomen and pelvis was performed without intravenous contrast. The dose-length product was 1306.51 mGy-cm. Automated exposure control and iterative reconstruction technique were employed. COMPARISON: CT dated 08/06/2021 FINDINGS: There is dependent atelectasis. Heart size normal. There is free fluid in the abdomen and pelvis. Normal appendix. No dilated small bowel loops are present with transition point in the mid abdomen, axial image 146 and coronal image 54, consistent with bowel obstruction. Fluid is present in the paracolic gutters and perihepatic space. Small amount of fluid in the mesentery. No free air. There is mild segmental small bowel wall thickening without hypoperfusion. The celiac axis, SMA and MAURO are patent. Renal arteries are patent. Gallbladder is present. Moderate spondylosis at L5-S1. IMPRESSION: 1. Small bowel obstruction with transition in the mid abdomen. 2: Small amount of free fluid in the abdomen and pelvis. No abscess. 3: Severely enlarged prostate gland. Reviewed, dictated and finalized at location O.
--- NOTE | ~2025-01-31 | XR_ITS ---
EXAMINATION: XR small bowel follow through COMPARISON: None HISTORY: SBO gastrografin FINDINGS: Medical Art Therapist image demonstrates nasogastric tube in the stomach with multiple dilated loops of small bowel the largest measuring 4 cm. The osseous structures are unremarkable Visualized amount unremarkable. There are multiple dilated loops of small bowel the largest measuring 4 cm with decompressed distal small bowel loops noted with most of the dilated small bowel loops in the proximal to mid region. There is contrast identified within the large bowel at 30 minutes. No extraluminal contrast identified. IMPRESSION: Findings may consistent with a partial small bowel obstruction or resolving small bowel obstruction. Probable transition point in the mid to distal small bowel. Correlation with CT enteroclysis suggested as clinically warranted Reviewed, dictated and finalized at location P. IMPRESSION: Findings may consistent with a partial small bowel obstruction or r esolving small bowel obstruction. Probable transition point in the mid to dista l small bowel. Correlation with CT enteroclysis suggested as clinically warrant ed
--- NOTE | ~2025-01-31 | XR_ITS ---
EXAMINATION: XR abdomen obstructive series, 02/01/2025 8:17 CDT HISTORY: SBO COMPARISON: No comparisons available. Technique: 3 view. Findings: There are dilated loops of small bowel the largest measuring 4 cm consistent with small bowel obstruction. No free air. No abnormal calcifications No acute osseous abnormality. Nasogastric tube terminates in the stomach. Impression: 1. Small bowel obstruction Reviewed, dictated and finalized at location P. Impression: 1. Small bowel obstruction
--- NOTE | ~2025-01-31 | XR_ITS ---
EXAMINATION: XR abdomen gastric tube insert, 01/31/2025 8:37 CDT HISTORY: ng tube placement COMPARISON: No comparisons available. Technique: 3 view. Findings: Bowel gas pattern unremarkable. No obstruction. No free air. No abnormal calcifications No acute osseous abnormality. Nasogastric tube terminates in the stomach Impression: 1. No acute abnormality. Reviewed, dictated and finalized at location P. Impression: 1. No acute abnormality.
[2025-01-31] MEDS: LACTATED RINGERS 1,000 ML 999 ML IV CONT (04:57)
[2025-01-31] MEDS: MORPHINE SULFATE (*CRX) 4 MG/ML INJ IV PUSH ×4 (04:57→21:39)
[2025-01-31] MEDS: ONDANSETRON INJ 4 MG/2 ML VIAL IV PUSH (04:57)
[2025-01-31 05:06] LABS: Hematocrit 46.0 % (42.0-52.0); Hemoglobin 14.8 g/dL (14.0-18.0); Immature Granulocyte Percent A 0.3 % (0-0.5); Lymphocytes Absolute Auto 2.96 K/mm3 (0.9-3.2); Mean Corpuscular HGB Conc 32.2 g/dl (32-36); Mean Corpuscular Hemoglobin 29.0 pg (26-34); Mean Corpuscular Volume 90.0 fl (80-100); Nucleated Red Blood Cells Absolute Auto 0.000 K/mm3 (0.0-0.012); Nucleated Red Blood Cells Perc 0.0 % (0.0-0.2); Platelet Count Result 274 k/mm3 (150-375); Red Blood Count 5.11 M/mm3 (4.6-6.20); White Blood Count 13.6 K/mm3 (4.5-10.0)
--- NOTE | 2025-01-31 05:07 | ED_ITS ---
HPI - Abdominal Pain General Chief Complaint: Abdominal Pain <Jonathan Lucas MD - Last Filed: 02/01/25 11:08> Stated Complaint: abd pain <Jonathan Lucas MD - Last Filed: 02/01/25 11:08> Time Seen by Provider: 01/31/25 04:48 <Jonathan Lucas MD - Last Filed: 02/01/25 11:08> History of Present Illness HPI narrative: 54-year-old male with history of BPH, prior kidney stones, hypertension presents to the emergency department for repeat evaluation of epigastric abdominal cramping and pain. He was seen and evaluated by myself yesterday and had significant improvement symptoms after Maalox and Pepcid in symptoms initially thought to be related to medication side effect from recent steroids. Patient felt better upon discharge and felt go throughout the day but then had recurrence of symptoms with some worsening intensity several hours prior to arrival. Endorses epigastric abdominal cramping now some lower abdominal cramping but denies any new traumatic injuries or any changes from status yesterday. No fever chills, no nausea, vomiting. Normal bowel movement this morning without any blood or obstipation. No urinary complaints. Patient has been taking the medications we gave him yesterday and it did not help him this last few hours. <Jonathan Lucas MD - Last Filed: 02/01/25 11:08> Related Data Home Medications: Home Medications ?Medication ?Instructions ?Recorded ?Confirmed ?Last Taken ?Type ascorbic acid (vitamin C) 1,000 mg 1 g PO DAILY 01/31/25 10/20/20 History tablet cholecalciferol (vitamin D3) 125 125 mcg PO DAILY 10/0801/31/25 10/20/20 History mcg (5,000 unit) capsule cyanocobalamin (vitamin B-12) 2,500 mcg PO DAILY 10/2201/31/25 10/20/20 History 2,500 mcg tablet finasteride 5 mg tablet 5 mg PO DAILY 01/19/2101/3101/28/25 History <Jonathan Lucas MD - Last Filed: 02/01/25 11:08> Allergies/Adverse Reactions: Allergies Allergy/AdvReac Type Severity Reaction Status Date / Time black hair dye Allergy Severe Hives Uncoded 01/30/25 00:35 <Jonathan Lucas MD - Last Filed: 02/01/25 11:08> Review of Systems 2 Review of Systems: As reviewed above in HPI <Jonathan Lucas MD - Last Filed: 02/01/25 11:08> [facility] Past Medical History Medical History: Medical History History of kidney stones Encounter for other specified surgical aftercare Difficulty urinating Kidney stone RUQ abdominal mass Bloating Abdominal pain Umbilical hernia BMI 31.0-31.9,adult Cervical pain (neck) Dietary counseling and surveillance (06/27/17) Dizziness Encounter for screening for lipoid disorders Encounter for screening for malignant neoplasm of prostate Heart palpitations Mixed hyperlipidemia Other symptoms and signs involving emotional state Weak urinary stream BMI 32.0-32.9,adult <Jonathan Lucas MD - Last Filed: 02/01/25 11:08> Surgical History Surgical History: Surgical History History of hernia surgery H/O umbilical hernia repair H/O left inguinal hernia repair <Jonathan Lucas MD - Last Filed: 02/01/25 11:08> Family History Family History: Family History Mother Hypertension Family history of diabetes mellitus in first degree relative Polyp of stomach Father Heart disease Acute myocardial infarction <Jonathan Lucas MD - Last Filed: 02/01/25 11:08> Social History Social History: Social History (Updated 01/31/25 @ 13:34 by Eip Flores MD) Social History: He smokes 1 cigar day. He lives with his fiancee. Smokes marijuana 1-2 times per month. He drinks 2-3 alcoholic drinks per week. Code status -full Surrogate decision maker -fiancee and mother Smoking packs per day: 0.5 Smoking cigarettes per day: 10.0 Years smoked: 2 Smoking pack-years: 1.00 Smoking status: Current every day smoker Tobacco type: cigars Smoking end date: 10/08/14 Additional smoking assessment comments: CONTINUES- CIGAR/WEEK, X 1 MONTH Alcohol intake: current Drinks per week: 2 Substance use: never Substance use type: marijuana Last use: 01/24/25 Do You Feel Safe in your Home?: Yes Lack of Transportation: No Lack of Food: Never True Current Housing: I Have Housing Concerned About Future Housing: No Difficulty Paying Gas/Electric Bills: No Difficulty Paying for Meds: No Currently Unemployed: No Education: Associate Degree Difficulty w/ Childcare or Family Care: No Living arrangements: alone Occupation/Education: occupation 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 Mucous membranes moist. NECK: Supple. CHEST: [Clear to auscultation. No respiratory distress.] HEART: [Regular rate and rhythm]. No murmur heard. [Normal peripheral pulses.] ABDOMEN: Distended, tender in the epigastrium and both lower quadrants. No rigidity or guarding. No peritonitis. EXTREMITIES: Normal range of motion. [No edema.] SKIN: Warm, dry, no rash. NEURO: [No focal deficits]. Alert and oriented [x3.] PSYCH: [Normal mood and affect.] <Jonathan Lucas MD - Last Filed: 02/01/25 11:08> Course Consultations Consultation #1: Dr. Abdul, npo/ng tube. Will consult. Admit to medicine. <Jg Eisenberg MD - Last Filed: 01/31/25 09:37> Date: 01/31/25 <Jg Eisenberg MD - Last Filed: 01/31/25 09:37> Time: 09:12 <Jg Eisenberg MD - Last Filed: 01/31/25 09:37> Consultation #2: Dr. Flores, accepts to hospitalist service <Jg Eisenberg MD - Last Filed: 01/31/25 09:37> Time: 09:35 <Jg Eisenberg MD - Last Filed: 01/31/25 09:37> Vital Signs Vital signs: Vital Signs Pulse Oximetry 100 01/31/25 04:50 Temperature 36.3 C L 02/01/25 04:41 Pulse Rate 79 02/01/25 04:41 Respiratory Rate 20 02/01/25 04:41 Blood Pressure 134/76 02/01/25 04:41 Pulse Oximetry 96 02/01/25 04:41 Oxygen Delivery Room Air 01/31/25 20:00 <Jonathan Lucas MD - Last Filed: 02/01/25 11:08> Vital Signs Pulse Oximetry 100 01/31/25 04:50 Temperature 36.3 C L 02/01/25 04:41 Pulse Rate 79 02/01/25 04:41 Respiratory Rate 20 02/01/25 04:41 Blood Pressure 134/76 02/01/25 04:41 Pulse Oximetry 96 02/01/25 04:41 Oxygen Delivery Room Air 01/31/25 20:00 <Jg Eisenberg MD - Last Filed: 01/31/25 09:37> MDM - Abdominal Pain MDM Narrative Medical decision making narrative: 54-year-old male with history of BPH, prior kidney stones, hypertension presents to the emergency department for repeat evaluation of epigastric abdominal cramping and pain. He was seen and evaluated by myself yesterday and had significant improvement symptoms after Maalox and Pepcid in symptoms initially thought to be related to medication side effect from recent steroids. Patient felt better upon discharge and felt go throughout the day but then had recurrence of symptoms with some worsening intensity several hours prior to arrival. Endorses epigastric abdominal cramping now some lower abdominal cramping but denies any new traumatic injuries or any changes from status yesterday. No fever chills, no nausea, vomiting. Normal bowel movement this morning without any blood or obstipation. No urinary complaints. Patient has been taking the medications we gave him yesterday and it did not help him this last few hours. Patient is hemodynamically stable without any tachycardia, fever, hypoxia or blood pressure concerns. He does have a mildly distended abdomen which is tender to palpation more so in the epigastrium but also in the bilateral lower quadrants which is an interval change from his examination yesterday. On review he did have a mildly elevated white count which was attributed to his recent steroid use but could also be a potential infectious process. His remaining workup was unremarkable but given his returning symptoms and worsening pain a CT scan was ordered for further evaluation he was given morphine Zofran fluids and re-evaluated. Laboratory studies better than yesterday. Patient had improvement pain control. CT scan pending. Signed out to morning physician pending CT scan and dispo based on results. <Jonathan Lucas MD - Last Filed: 02/01/25 11:08> Medical Records Attestation: I reviewed the patient's medical records. <Jonathan Lucas MD - Last Filed: 02/01/25 11:08> Lab Data Attestation: I reviewed the patient's lab results. <Jonathan Lucas MD - Last Filed: 02/01/25 11:08> I reviewed the patient's lab results. <Jg Eisenberg MD - Last Filed: 01/31/25 09:37> Result diagrams: 02/01/25 08:12 02/01/25 08:12 <Jonathan Lucas MD - Last Filed: 02/01/25 11:08> Labs: Lab Results 01/31/25 Range/Units 04:59 WBC 13.6 H (4.5-10.0) K/mm3 RBC 5.11 (4.6-6.20) M/mm3 Hgb 14.8 (14.0-18.0) g/dL Hct 46.0 (42.0-52.0) % MCV 90.0 (80-100) fl MCH 29.0 (26-34) pg MCHC 32.2 (32-36) g/dl RDW 14.6 H (11.5-14.5) % Plt Count 274 (150-375) k/mm3 MPV 11.4 H (7.4-10.4) fl Immature Gran % (Auto) 0.3 (0-0.5) % Neut % (Auto) 67.7 (45.5-73.1) % Lymph % (Auto) 21.8 (18.3-44.2) % [place] % (Auto) 7.9 (2.6-8.5) % Eos % (Auto) 2.1 (0-4.4) % Baso % (Auto) 0.2 (0.2-1.2) % Lymph # (Auto) 2.96 (0.9-3.2) K/mm3 [place] # (Auto) 1.1 H (0.1-0.6) K/mm3 Eos # (Auto) 0.3 (0-0.3) K/mm3 Baso # (Auto) 0.0 (0.0-0.1) K/mm3 Abs Immat Gran (auto) 0.04 H (0.00-0.031) K/mm3 Absolute Neuts (auto) 9.2 H (1.3-6.7) K/mm3 Absolute Nucleated RBC 0.000 (0.0-0.012) K/mm3 Nucleated RBC % 0.0 (0.0-0.2) % Sodium 138 (137-145) mmol/L Potassium 3.7 (3.4-5.0) mmol/L Chloride 100 (98-107) mmol/L Carbon Dioxide 31 H (22-30) mmol/L Anion Gap 7 (4-12) mmol/L BUN 17 (9-20) mg/dL Creatinine 1.42 H (0.7-1.3) mg/dL Estim Creat Clear Calc 66 ml/min Estimated GFR 52 L (59 - ) Glucose 150 H (65-110) mg/dL Calcium 9.6 (8.4-10.2) mg/dL Total Bilirubin 0.5 (0.2-1.3) mg/dL AST 30 (17-59) U/L ALT 17 (6-50) U/L Alkaline Phosphatase 77 (38-126) U/L Total Protein 7.2 (6.3-8.2) g/dL Albumin 3.9 (3.5-5.1) g/dL <Jonathan Lucas MD - Last Filed: 02/01/25 11:08> Lab Results 01/31/25 Range/Units 04:59 WBC 13.6 H (4.5-10.0) K/mm3 RBC 5.11 (4.6-6.20) M/mm3 Hgb 14.8 (14.0-18.0) g/dL Hct 46.0 (42.0-52.0) % MCV 90.0 (80-100) fl MCH 29.0 (26-34) pg MCHC 32.2 (32-36) g/dl RDW 14.6 H (11.5-14.5) % Plt Count 274 (150-375) k/mm3 MPV 11.4 H (7.4-10.4) fl Immature Gran % (Auto) 0.3 (0-0.5) % Neut % (Auto) 67.7 (45.5-73.1) % Lymph % (Auto) 21.8 (18.3-44.2) % [place] % (Auto) 7.9 (2.6-8.5) % Eos % (Auto) 2.1 (0-4.4) % Baso % (Auto) 0.2 (0.2-1.2) % Lymph # (Auto) 2.96 (0.9-3.2) K/mm3 [place] # (Auto) 1.1 H (0.1-0.6) K/mm3 Eos # (Auto) 0.3 (0-0.3) K/mm3 Baso # (Auto) 0.0 (0.0-0.1) K/mm3 Abs Immat Gran (auto) 0.04 H (0.00-0.031) K/mm3 Absolute Neuts (auto) 9.2 H (1.3-6.7) K/mm3 Absolute Nucleated RBC 0.000 (0.0-0.012) K/mm3 Nucleated RBC % 0.0 (0.0-0.2) % Sodium 138 (137-145) mmol/L Potassium 3.7 (3.4-5.0) mmol/L Chloride 100 (98-107) mmol/L Carbon Dioxide 31 H (22-30) mmol/L Anion Gap 7 (4-12) mmol/L BUN 17 (9-20) mg/dL Creatinine 1.42 H (0.7-1.3) mg/dL Estim Creat Clear Calc 66 ml/min Estimated GFR 52 L (59 - ) Glucose 150 H (65-110) mg/dL Calcium 9.6 (8.4-10.2) mg/dL Total Bilirubin 0.5 (0.2-1.3) mg/dL AST 30 (17-59) U/L ALT 17 (6-50) U/L Alkaline Phosphatase 77 (38-126) U/L Total Protein 7.2 (6.3-8.2) g/dL Albumin 3.9 (3.5-5.1) g/dL <Jg Eisenberg MD - Last Filed: 01/31/25 09:37> Imaging Data Radiologist's impression: ITS Impressions Abdomen/Pelvis CT 01/31/25 07:47 IMPRESSION: 1. Small bowel obstruction with transition in the mid abdomen. 2: Small amount of free fluid in the abdomen and pelvis. No abscess. 3: Severely enlarged prostate gland. <Jonathan Lucas MD - Last Filed: 02/01/25 11:08> ITS Impressions Abdomen/Pelvis CT 01/31/25 07:47 IMPRESSION: 1. Small bowel obstruction with transition in the mid abdomen. 2: Small amount of free fluid in the abdomen and pelvis. No abscess. 3: Severely enlarged prostate gland. <Jg Eisenberg MD - Last Filed: 01/31/25 09:37> Discharge Plan Discharge Clinical Impression: Small bowel obstruction <Jonathan Lucas MD - Last Filed: 02/01/25 11:08> Patient Disposition: Still a Patient <Jonathan Lucas MD - Last Filed: 02/01/25 11:08> Condition: Stable <Jonathan Lucas MD - Last Filed: 02/01/25 11:08>
[2025-01-31 05:25] LABS: Alanine Aminotransferase 17 U/L (6-50); Albumin Level 3.9 g/dL (3.5-5.1); Alkaline Phosphatase 77 U/L (38-126); Anion Gap 7 mmol/L (4-12); Aspartate Amino Transferase 30 U/L (17-59); Bilirubin,Total 0.5 mg/dL (0.2-1.3); Blood Urea Nitrogen 17 mg/dL (9-20); Calcium 9.6 mg/dL (8.4-10.2); Carbon Dioxide 31 mmol/L (22-30); Chloride 100 mmol/L (98-107); Estimated CRCL calculation 66 ml/min; Estimated Glomerular Filt Rate 52; Glucose 150 mg/dL (65-110); Potassium 3.7 mmol/L (3.4-5.0); Sodium 138 mmol/L (137-145); Total Protein 7.2 g/dL (6.3-8.2)
[2025-01-31] MEDS: PHENOL/SOD PHENO SPRAY CHERRY (*BKC) 1 SPRAY MUCOUS MEM (09:04)
[2025-01-31] MEDS: SODIUM CHLORIDE 0.9% IV 1,000 ML 125 ML IV CONT ×2 (10:01→17:56)
--- NOTE | 2025-01-31 10:24 | PC.NURSE ---
1st attempt for nurse report at [phone]
--- NOTE | 2025-01-31 10:41 | PC.NURSE ---
This patient, Brian Orlando, was admitted to [facility] Surg Room 314-02 at 1040. Patient/family oriented to hospital policies and general routines including ID bracelet, bed and alarms, visiting hours, pain management, procedures, bathroom and other care routines, personal items, smoking policy, room service/diet, and visiting hours. Information on how to activate the Rapid Response Team has been discussed. Patient/Family are encouraged to report perceived risks to care and to ask questions if they do not understand what they are told or what they should do.
--- NOTE | 2025-01-31 11:17 | PM.IMHP ---
H&P: HPI History of Present Illness Date/Time: 01/31/25 11:17 Chief Complaint: Abdominal pain Narrative: 54yo male with history of BPH, prior kidney stones and HTN who returns to the ED for persistent complaints of abdominal pain. Patient was seen at urgent care center about 1 week ago for an allergic reaction to hair dye. He was treated with steroids. He is also given antibiotics for some tender lymphadenopathy. He was doing well until about 2 days prior to admission when he developed mid abdominal pain and cramping that would worsen at times. He developed nausea and vomiting with bilious emesis but no hematemesis. He was seen in the emergency room on 01/30/2025 in the cancer researcher hours. Was felt the he had gastritis. He had improvement with Maalox and Pepcid. He was discharged home. He had recurrent abdominal pain. He did have a bowel movement the day prior to admission. No melena or hematochezia. No diarrhea. Did mention the stools are with mucus. No history of small-bowel obstruction. He has had 2 abdominal surgeries in the past: Umbilical hernia repair and left inguinal hernia repair. He denies having fever, chills, chest pain, shortness of breath, palpitations, cough, dysuria or hematuria. He does have chronic left leg numbness and tingling due to sciatica. He presented back to emergency room because of the persistent abdominal pain. In the ED, the patient was hemodynamically stable on presentation. WBC was 13.6K, Cr 1.42 and glucose 150. LFTs were normal. Lipase was normal yesterday. CT Abd/Pelvis showing small bowel obstruction with transition in the mid abdomen. small amount of free fluid and severely enlarged prostate. No abscess noted. An NGT was placed. General surgery was consulted. He was given Zofran, Morphine, and IV fluids. He was admitted for further care. Review of Systems Review of Systems: All systems reviewed & are unremarkable except as noted in HPI and below PMFSH Past Medical History Medical History History of kidney stones Encounter for other specified surgical aftercare Difficulty urinating Kidney stone RUQ abdominal mass Bloating Abdominal pain Umbilical hernia BMI 31.0-31.9,adult Cervical pain (neck) Dietary counseling and surveillance (06/27/17) Dizziness Encounter for screening for lipoid disorders Encounter for screening for malignant neoplasm of prostate Heart palpitations Mixed hyperlipidemia Other symptoms and signs involving emotional state Weak urinary stream BMI 32.0-32.9,adult Surgical History Surgical History History of hernia surgery H/O umbilical hernia repair H/O left inguinal hernia repair Family History Family History Mother Hypertension Family history of diabetes mellitus in first degree relative Polyp of stomach Father Heart disease Acute myocardial infarction Social History Social History (Updated 01/31/25 @ 13:34 by Epi Flores MD) Social History: He smokes 1 cigar day. He lives with his fiadrianee. Smokes marijuana 1-2 times per month. He drinks 2-3 alcoholic drinks per week. Code status -full Surrogate decision maker -fiancee and mother Smoking packs per day: 0.5 Smoking cigarettes per day: 10.0 Years smoked: 2 Smoking pack-years: 1.00 Smoking status: Current every day smoker Tobacco type: cigars Smoking end date: 10/08/14 Additional smoking assessment comments: CONTINUES- CIGAR/WEEK, X 1 MONTH Alcohol intake: current Drinks per week: 2 Substance use: never Substance use type: marijuana Last use: 01/24/25 Do You Feel Safe in your Home?: Yes Lack of Transportation: No Lack of Food: Never True Current Housing: I Have Housing Concerned About Future Housing: No Difficulty Paying Gas/Electric Bills: No Difficulty Paying for Meds: No Currently Unemployed: No Education: Associate Degree Difficulty w/ Childcare or Family Care: No Living arrangements: alone Occupation/Education: occupation 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[employer] Gender identity (if verbalized by the patient): Male Spiritual care concerns: No Meds Home Medications and Allergies Home Medications ?Medication ?Instructions ?Recorded ?Confirmed ?Type ascorbic acid (vitamin C) 1,000 mg 1 g PO DAILY 10/22/20 01/31/25 History tablet cholecalciferol (vitamin D3) 125 125 mcg PO DAILY 10/22/20 01/31/25 History mcg (5,000 unit) capsule cyanocobalamin (vitamin B-12) 2,500 mcg PO DAILY 10/22/20 01/31/25 History 2,500 mcg tablet finasteride 5 mg tablet 5 mg PO DAILY 01/19/21 01/31/25 History amlodipine 5 mg tablet (Norvasc) 5 mg PO DAILY #90 tabs 11/21/24 01/31/25 Rx trazodone 50 mg tablet 50 mg PO QHS PRN sleep #30 tabs 11/21/24 01/31/25 Rx aluminum-mag hydroxide-simethicone 15 ml PO QID PRN indigestion 01/30/25 01/31/25 Rx 200 mg-200 mg-20 mg/5 mL oral susp #3,000 mL (Maalox Advanced) famotidine 20 mg tablet (Pepcid) 20 mg PO BID #20 tabs 01/30/25 01/31/25 Rx ondansetron 4 mg disintegrating 4 mg PO Q8H PRN nausea and 01/30/25 01/31/25 Rx tablet vomiting #10 tabs Allergies Allergy/AdvReac Type Severity Reaction Status Date / Time black hair dye Allergy Severe Hives Uncoded 01/30/25 00:35 Vital Signs Vital Signs - 24 hr 01/31/25 04:50 01/31/25 04:51 01/31/25 04:52 Temperature 98.9 F Pulse Rate 77 Respiratory Rate 17 Blood Pressure 123/62 123/62 Pulse Oximetry 100 100 100 Oxygen Delivery Room Air 01/31/25 05:00 01/31/25 05:01 01/31/25 05:15 Temperature Pulse Rate 87 88 84 Respiratory Rate 23 H 15 14 Blood Pressure 153/76 H Pulse Oximetry 100 100 98 Oxygen Delivery 01/31/25 05:16 01/31/25 05:30 01/31/25 05:31 Temperature Pulse Rate 85 81 79 Respiratory Rate 16 15 17 Blood Pressure 131/74 152/80 H Pulse Oximetry 98 97 98 Oxygen Delivery 01/31/25 05:45 01/31/25 05:46 01/31/25 05:47 Temperature Pulse Rate 76 79 78 Respiratory Rate 16 16 16 Blood Pressure 131/75 Pulse Oximetry 98 97 98 Oxygen Delivery 01/31/25 06:31 01/31/25 06:32 01/31/25 07:13 Temperature Pulse Rate 80 76 78 Respiratory Rate 13 13 17 Blood Pressure 131/77 136/80 Pulse Oximetry 98 98 100 Oxygen Delivery 01/31/25 07:16 01/31/25 07:31 01/31/25 07:46 Temperature Pulse Rate 78 76 82 Respiratory Rate 16 17 20 Blood Pressure 142/83 H 155/82 H 118/84 Pulse Oximetry 100 97 100 Oxygen Delivery 01/31/25 08:01 01/31/25 08:36 01/31/25 08:48 Temperature Pulse Rate 76 84 82 Respiratory Rate 18 21 H 18 Blood Pressure 149/87 H Pulse Oximetry 100 100 100 Oxygen Delivery 01/31/25 09:00 01/31/25 09:15 01/31/25 09:52 Temperature Pulse Rate 78 79 78 Respiratory Rate 14 12 12 Blood Pressure Pulse Oximetry 100 99 100 Oxygen Delivery 01/31/25 10:00 Temperature Pulse Rate 77 Respiratory Rate 12 Blood Pressure Pulse Oximetry 100 Oxygen Delivery Exam Narrative: AF 98.9 149/87 77 12 100% ra Gen - well appearing male in no acute respiratory distress who is nontoxic-appearing lying semi recumbent in bed HEENT - normocephalic. Atraumatic. Scalp is clear. Very small abrasive appearing lesion at the top of the left pinna. Pupils equal round and reactive. Extraocular motions intact. Sclera clear and anicteric. NG tube secured with scant amount of fluid in the canister. Oropharynx was poorly visualized. No oral lesions. Moist mucous membranes. Tongue was midline. Palate favio symmetrically. No facial asymmetry. Neck - neck was supple. No dominant adenopathy, thyromegaly or masses. Chest - lungs are clear to auscultation bilaterally. No wheezes or crackles. CV - heart was regular rate and rhythm. S1-S2. No murmurs gallops or rubs. Abd - abdomen was soft. Nontender. Nondistended. Positive bowel sounds. No organomegaly or masses. Ext - no clubbing, cyanosis or edema. 2+ DP pulses bilaterally. Neuro - patient is alert and oriented x4. Strength is 5/5 in both upper and lower extremities. Cranial nerves 2-12 are intact. Speech is clear. Psych - normal mood and affect. Patient is pleasant and cooperative. Skin - warm and dry. No rashes noted. H&P: Results Labs Labs: Short CBC 01/31/25 Range/Units 04:59 WBC 13.6 H (4.5-10.0) K/mm3 Hgb 14.8 (14.0-18.0) g/dL Hct 46.0 (42.0-52.0) % Plt Count 274 (150-375) k/mm3 BMP 01/31/25 04:59 Sodium 138 Potassium 3.7 Chloride 100 Carbon Dioxide 31 H BUN 17 Creatinine 1.42 H Glucose 150 H Calcium 9.6 Liver Function 01/31/25 Range/Units 04:59 Total Bilirubin 0.5 (0.2-1.3) mg/dL AST 30 (17-59) U/L ALT 17 (6-50) U/L Alkaline Phosphatase 77 (38-126) U/L Albumin 3.9 (3.5-5.1) g/dL Assessment and Plan Assessment and plan (1) Small bowel obstruction: Code(s): K56.609 - Unspecified intestinal obstruction, unspecified as to partial versus complete obstruction Status: Acute Assessment and Plan: Patient presents with abdominal pain and found to have SBO. He has a hx of inguinal and umbilical hernia repairs. NGT placed. General surgery consulted. NPO. Continue IV fluids. Ice chips okay. Serial abd exams. Repeat KUB in the morning. (2) Essential hypertension: Code(s): I10 - Essential (primary) hypertension Status: Acute Assessment and Plan: BP noted. NPO. Home meds held. Start hydralazine prn for markedly elevated BP. (3) BPH (benign prostatic hyperplasia): Code(s): N40.0 - Benign prostatic hyperplasia without lower urinary tract symptoms Status: Acute Assessment and Plan: Patient with hx of BPH and imaging showing a severely enlarged prostate On finasteride which will hold due to NPO status Monitor for urine retention Plan DVT prophylaxis - Lovenox Code status - Full
--- NOTE | 2025-01-31 11:45 | PM.CNGS ---
Assessment and Plan Assessment and plan (1) Small bowel obstruction: Code(s): K56.609 - Unspecified intestinal obstruction, unspecified as to partial versus complete obstruction <Tucker Barros, DO - Last Filed: 01/31/25 12:00> Status: Acute <Tucker Barros, DO - Last Filed: 01/31/25 12:00> Assessment and Plan: Imaging reviewed and discussed findings withpatient. Patient has SBO likely related to adhesions. Transition point appears to be near prior umbilical hernia repair. Will continue NG decompression, possible Gastrograffin SBFT tomorrow. Will continue to follow. <Avi Abdul, DO - Last Filed: 02/01/25 12:48> (2) Essential hypertension: Code(s): I10 - Essential (primary) hypertension <Tucker Barros, DO - Last Filed: 01/31/25 12:00> Status: Acute <Tucker Barros, DO - Last Filed: 01/31/25 12:00> (3) H/O umbilical hernia repair: Code(s): Z98.890 - Other specified postprocedural states; Z87.19 - Personal history of other diseases of the digestive system <Tucker Barros, DO - Last Filed: 01/31/25 12:00> Status: Acute <Tucker Barros, DO - Last Filed: 01/31/25 12:00> Assessment and Plan: 54 yo male with SBO - CTAP showing dilated small bowel and decompressed small bowel with likely transition point in the mid abdomen consistent with SBO. Patient does have a history of an umbilical hernia [place] in [address] Johnson. Discussed the diagnosis with the patient and the most likely etiologies. Patient has NGT in place. Will continue with decompression at this time, poss SBFT vs dx lap. Plan - Hospitalist admission - NPO - NGT to LIWS - IVF - Monitor for ROBF - SBFT vs dx lap after decompression - Remainder of cares per primary team - Thank you for the consult, surgery will follow A&P discussed with Dr. Abdul <Tucker Barros, DO - Last Filed: 01/31/25 12:00> History of Present Illness Consult details Consult date: 01/31/25 <Tucker E. Barros, DO - Last Filed: 01/31/25 12:00> 02/01/25 <Avi Abdul, DO - Last Filed: 02/01/25 12:48> Reason for consult: abdominal pain <Avi Abdul, DO - Last Filed: 02/01/25 12:48> Requesting physician: Epi Flores MD <Avi Abdul, DO - Last Filed: 02/01/25 12:48> Narrative: Patient is a 54 yo male with a PMH of HTN, GERD, and BPH who presented to the hospital complaining of abdominal distention, nausea, and vomiting that started over the past 24 to 48 hours. Last week, the patient used a shampoo that had dye in it and caused an allergic reaction. He was started on a Medrol dose pack, which he started Monday. On Monday he noticed abdominal distention, nausea, and vomiting. His last BM was yesterday. No flatus since. He feels more distended than normal. His only abdominal surgical history was an umbilical hernia repair in [address] Johnson. He has never had anything like this before. He had a colonoscopy this year without evidence of polyps. He has no personal or family history of colon cancer, UC, or Crohn's disease. On exam, his abdomen is soft, compressible, distended, mildy TTP at supraumbilical and epigastric regions, nonperitoneal. He had a CTAP which showed a dilated stomach and loops of small bowel with a transition point possibly in the midline near his umbilicus. He had some trace ascites scattered throughout the abdomen. His labs showed a WBC of 13.6, Cr 1.42 unknown baseline, but appears similar to previous admissions, remainder of labs grossly WNL. <Tucker Barros, DO - Last Filed: 01/31/25 12:00> Review of Systems Review of Systems: 12 point ROS negative except HPI <Tucker Barros, DO - Last Filed: 01/31/25 12:00> All systems reviewed & are unremarkable except as noted in HPI and below <Avi Abdul, DO - Last Filed: 02/01/25 12:48> Eyes: Eyes: Denies change in vision <Avi Abdul, DO - Last Filed: 02/01/25 12:48> ENT: Denies hearing loss, Denies neck pain and Denies sore throat <Avi Abdul DO - Last Filed: 02/01/25 12:48> Cardiovascular: Cardiovascular: Denies chest pain and Denies dyspnea <Avi Abdul DO - Last Filed: 02/01/25 12:48> Respiratory: Respiratory: Denies cough, Denies dyspnea and Denies wheezing <Avi Abdul DO - Last Filed: 02/01/25 12:48> Gastrointestinal: Gastrointestinal: Reports as per HPI <Avi Abdul DO - Last Filed: 02/01/25 12:48> Genitourinary: Genitourinary: Denies hematuria and Denies dysuria <Avi Abdul DO - Last Filed: 02/01/25 12:48> Musculoskeletal: Musculoskeletal: Denies arthralgias, Denies joint swelling and Denies neck pain <Avi Abdul DO - Last Filed: 02/01/25 12:48> Allergic/Immunologic: Allergic/Immunologic: Denies wheezing <Avi Abdul DO - Last Filed: 02/01/25 12:48> PMFSH Past Medical History Medical History: Medical History History of kidney stones Encounter for other specified surgical aftercare Difficulty urinating Kidney stone RUQ abdominal mass Bloating Abdominal pain Umbilical hernia BMI 31.0-31.9,adult Cervical pain (neck) Dietary counseling and surveillance (06/27/17) Dizziness Encounter for screening for lipoid disorders Encounter for screening for malignant neoplasm of prostate Heart palpitations Mixed hyperlipidemia Other symptoms and signs involving emotional state Weak urinary stream BMI 32.0-32.9,adult <Tucker Barros DO - Last Filed: 01/31/25 12:00> Surgical History Surgical History: Surgical History (Updated 02/01/25 @ 12:46 by Avi Abdul DO) History of hernia surgery H/O umbilical hernia repair H/O left inguinal hernia repair <Tucker Barros DO - Last Filed: 01/31/25 12:00> Family History Family History: Family History Mother Hypertension Family history of diabetes mellitus in first degree relative Polyp of stomach Father Heart disease Acute myocardial infarction <Tucker Barros DO - Last Filed: 01/31/25 12:00> Social History Social History: Social History (Updated 01/31/25 @ 13:34 by Epi Flores MD) Social History: He smokes 1 cigar day. He lives with his fiancee. Smokes marijuana 1-2 times per month. He drinks 2-3 alcoholic drinks per week. Code status -full Surrogate decision maker -fiancee and mother Smoking packs per day: 0.5 Smoking cigarettes per day: 10.0 Years smoked: 2 Smoking pack-years: 1.00 Smoking status: Current every day smoker Tobacco type: cigars Smoking end date: 10/08/14 Additional smoking assessment comments: CONTINUES- CIGAR/WEEK, X 1 MONTH Alcohol intake: current Drinks per week: 2 Substance use: never Substance use type: marijuana Last use: 01/24/25 Do You Feel Safe in your Home?: Yes Lack of Transportation: No Lack of Food: Never True Current Housing: I Have Housing Concerned About Future Housing: No Difficulty Paying Gas/Electric Bills: No Difficulty Paying for Meds: No Currently Unemployed: No Education: Associate Degree Difficulty w/ Childcare or Family Care: No Living arrangements: alone Occupation/Education: occupation 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/education 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 [employer] Gender identity (if verbalized by the patient): Male Spiritual care concerns: No <Tucker Barros DO - Last Filed: 01/31/25 12:00> Meds Home Medications and Allergies Home medications: Home Medications ?Medication ?Instructions ?Recorded ?Confirmed ?Type ascorbic acid (vitamin C) 1,000 mg 1 g PO DAILY 10/22/20 01/31/25 History tablet cholecalciferol (vitamin D3) 125 125 mcg PO DAILY 10/22/20 01/31/25 History mcg (5,000 unit) capsule cyanocobalamin (vitamin B-12) 2,500 mcg PO DAILY 10/22/20 01/31/25 History 2,500 mcg tablet finasteride 5 mg tablet 5 mg PO DAILY 01/19/21 01/31/25 History amlodipine 5 mg tablet (Norvasc) 5 mg PO DAILY #90 tabs 08/14/25 10/24/25 Rx trazodone 50 mg tablet 50 mg PO QHS PRN sleep #30 tabs 11/21/24 01/31/25 Rx aluminum-mag hydroxide-simethicone 15 ml PO QID PRN indigestion 01/30/25 01/31/25 Rx 200 mg-200 mg-20 mg/5 mL oral susp #3,000 mL (Maalox Advanced) famotidine 20 mg tablet (Pepcid) 20 mg PO BID #20 tabs 01/30/25 01/31/25 Rx ondansetron 4 mg disintegrating 4 mg PO Q8H PRN nausea and 01/30/25 01/31/25 Rx tablet vomiting #10 tabs <Tucker Barros, DO - Last Filed: 01/31/25 12:00> Allergies/Adverse reactions: Allergies Allergy/AdvReac Type Severity Reaction Status Date / Time black hair dye Allergy Severe Hives Uncoded 01/30/25 00:35 <Tucker Barros, DO - Last Filed: 01/31/25 12:00> Vital Signs Vital Signs - 24 hr 01/31/25 04:50 01/31/25 04:51 01/31/25 04:52 Temperature 98.9 F Pulse Rate 77 Respiratory Rate 17 Blood Pressure 123/62 123/62 Pulse Oximetry 100 100 100 Oxygen Delivery Room Air 01/31/25 05:00 01/31/25 05:01 01/31/25 05:15 Temperature Pulse Rate 87 88 84 Respiratory Rate 23 H 15 14 Blood Pressure 153/76 H Pulse Oximetry 100 100 98 Oxygen Delivery 01/31/25 05:16 01/31/25 05:30 01/31/25 05:31 Temperature Pulse Rate 85 81 79 Respiratory Rate 16 15 17 Blood Pressure 131/74 152/80 H Pulse Oximetry 98 97 98 Oxygen Delivery 01/31/25 05:45 01/31/25 05:46 01/31/25 05:47 Temperature Pulse Rate 76 79 78 Respiratory Rate 16 16 16 Blood Pressure 131/75 Pulse Oximetry 98 97 98 Oxygen Delivery 01/31/25 06:31 01/31/25 06:32 01/31/25 07:13 Temperature Pulse Rate 80 76 78 Respiratory Rate 13 13 17 Blood Pressure 131/77 136/80 Pulse Oximetry 98 98 100 Oxygen Delivery 01/31/25 07:16 01/31/25 07:31 01/31/25 07:46 Temperature Pulse Rate 78 76 82 Respiratory Rate 16 17 20 Blood Pressure 142/83 H 155/82 H 118/84 Pulse Oximetry 100 97 100 Oxygen Delivery 01/31/25 08:01 01/31/25 08:36 01/31/25 08:48 Temperature Pulse Rate 76 84 82 Respiratory Rate 18 21 H 18 Blood Pressure 149/87 H Pulse Oximetry 100 100 100 Oxygen Delivery 01/31/25 09:00 01/31/25 09:15 01/31/25 09:52 Temperature Pulse Rate 78 79 78 Respiratory Rate 14 12 12 Blood Pressure Pulse Oximetry 100 99 100 Oxygen Delivery 01/31/25 10:00 Temperature Pulse Rate 77 Respiratory Rate 12 Blood Pressure Pulse Oximetry 100 Oxygen Delivery <Tucker Barros, DO - Last Filed: 01/31/25 12:00> Exam Narrative: General: Awake, alert, NAD HEENT: NCAT, mucous membranes pink Neck: No masses or swelling, no JVD Heart: RR, HDS Lungs: Symmetric expansion, no IWOB, on RA Abdomen: Soft, compressible, distended, mildly TTP in supraumbilical and epigastric regions, nonperitoneal Extremities: moves all, no edema Psych: Normal affect, normal mood, normal judgment <Tucker Barros DO - Last Filed: 01/31/25 12:00> Const: General: alert; No acute distress <Avi Abdul DO - Last Filed: 02/01/25 12:48> Orientation/consciousness: patient oriented x3 <Avi Abdul DO - Last Filed: 02/01/25 12:48> Limitations: no limitations <Avi Abdul DO - Last Filed: 02/01/25 12:48> HENMT: Head: normocephalic and atraumatic <Avi Abdul DO - Last Filed: 02/01/25 12:48> Ears: hearing grossly normal bilaterally <Avi Abdul DO - Last Filed: 02/01/25 12:48> Face/Nose/Sinus: Normal external nose present and Normal nares present <Avi Abdul DO - Last Filed: 02/01/25 12:48> Mouth: Yes Normal oral and palatal mucosa present and Yes moist mucous membranes <Avi ArellanoJaswinder Abdul DO - Last Filed: 02/01/25 12:48> Eyes: General: appearance normal, both eyes and all related structures <Avi Flowers Chantell DO - Last Filed: 02/01/25 12:48> Conjunctivae: conjunctivae normal <Avi ArellanoJaswinder Abdul DO - Last Filed: 02/01/25 12:48> Sclera: sclerae normal <Avi ArellanoJaswinder Abdul DO - Last Filed: 02/01/25 12:48> Pupils: Equal, round and reactive pupils present <Avi ArellanoJaswinder Abdul DO - Last Filed: 02/01/25 12:48> EOM: EOMs intact bilaterally <Avi ArellanoJaswinder Abdul DO - Last Filed: 02/01/25 12:48> Neck: Neck: normal visual inspection, full ROM, no lymphadenopathy, supple and no JVD <Avi EileenJaswinder Abdul DO - Last Filed: 02/01/25 12:48> Lymphatic: no lymphadenopathy noted <Avi ArellanoJaswinder Abdul DO - Last Filed: 02/01/25 12:48> Chest: Chest palpation & inspection: normal inspection of the chest <Avi EileenJaswinder Abdul DO - Last Filed: 02/01/25 12:48> Resp: Effort & Inspection: normal respiratory effort and able to speak in complete sentences <Avi ArellanoJaswinder Abdul DO - Last Filed: 02/01/25 12:48> Auscultation: clear to auscultation bilaterally <Avi EileenJaswinder Abdul DO - Last Filed: 02/01/25 12:48> Percussion: percussion normal <Avi ArellanoJaswinder Abdul DO - Last Filed: 02/01/25 12:48> Cardio: Jugular venous distension: no JVD <Avi Abdul DO - Last Filed: 02/01/25 12:48> Rate: regular rate <Avi EileenJaswinder Abdul - Last Filed: 02/01/25 12:48> Rhythm: regular rhythm <Avi Abdul DO - Last Filed: 02/01/25 12:48> Heart sounds: S1 normal heart sound present and S2 normal heart sound present <Avi Abdul DO - Last Filed: 02/01/25 12:48> Peripheral pulses: Peripheral pulses 2+ throughout <Avi Abdul DO - Last Filed: 02/01/25 12:48> GI: Inspection: distended <Avi Abdul DO - Last Filed: 02/01/25 12:48> GI Palp: Yes Soft to palpation, Yes Tenderness to palpation present (GI) (mild periumbilical), No Guarding due to palpation present (GI) and No Rebound tenderness present <Avi Abdul DO - Last Filed: 02/01/25 12:48> Auscultation: Hypoactive bowel sounds present <Avi Abdul DO - Last Filed: 02/01/25 12:48> : General: Yes no CVA tenderness <Avi Abdul DO - Last Filed: 02/01/25 12:48> Back/Spine/Pelvis: Back: no CVA tenderness <Avi Abdul DO - Last Filed: 02/01/25 12:48> Skin: General skin exam: normal color and dry skin <Avi Abdul DO - Last Filed: 02/01/25 12:48> Neuro: General: patient oriented x3, gait normal, moves all extremities, no focal motor deficits and CN's II-XI intact bilaterally <Avi Abdul DO - Last Filed: 02/01/25 12:48> Cranial nerves: Yes Equal, round and reactive pupils present <Avi Abdul DO - Last Filed: 02/01/25 12:48> Speech: normal speech <Avi Abdul DO - Last Filed: 02/01/25 12:48> Extrem: General: normal to inspection and capillary refill normal <Avi Abdul DO - Last Filed: 02/01/25 12:48> Results Labs Result diagrams: 02/01/25 08:12 02/01/25 08:12 <Tucker Barros, DO - Last Filed: 01/31/25 12:00> Labs: Abnormal lab results 01/31/25 Range/Units 04:59 WBC 13.6 H (4.5-10.0) K/mm3 RDW 14.6 H (11.5-14.5) % MPV 11.4 H (7.4-10.4) fl [place] # (Auto) 1.1 H (0.1-0.6) K/mm3 Abs Immat Gran (auto) 0.04 H (0.00-0.031) K/mm3 Absolute Neuts (auto) 9.2 H (1.3-6.7) K/mm3 Carbon Dioxide 31 H (22-30) mmol/L Creatinine 1.42 H (0.7-1.3) mg/dL Estimated GFR 52 L (59 - ) Glucose 150 H (65-110) mg/dL Diabetes panel 01/31/25 Range/Units 04:59 Sodium 138 (137-145) mmol/L Potassium 3.7 (3.4-5.0) mmol/L Chloride 100 (98-107) mmol/L Carbon Dioxide 31 H (22-30) mmol/L BUN 17 (9-20) mg/dL Creatinine 1.42 H (0.7-1.3) mg/dL Glucose 150 H (65-110) mg/dL Calcium 9.6 (8.4-10.2) mg/dL AST 30 (17-59) U/L ALT 17 (6-50) U/L Alkaline Phosphatase 77 (38-126) U/L Total Protein 7.2 (6.3-8.2) g/dL Albumin 3.9 (3.5-5.1) g/dL Calcium panel 01/31/25 Range/Units 04:59 Calcium 9.6 (8.4-10.2) mg/dL Albumin 3.9 (3.5-5.1) g/dL Pituitary panel 01/31/25 Range/Units 04:59 Sodium 138 (137-145) mmol/L Potassium 3.7 (3.4-5.0) mmol/L Chloride 100 (98-107) mmol/L Carbon Dioxide 31 H (22-30) mmol/L BUN 17 (9-20) mg/dL Creatinine 1.42 H (0.7-1.3) mg/dL Glucose 150 H (65-110) mg/dL Calcium 9.6 (8.4-10.2) mg/dL Adrenal panel 01/31/25 Range/Units 04:59 Sodium 138 (137-145) mmol/L Potassium 3.7 (3.4-5.0) mmol/L Chloride 100 (98-107) mmol/L Carbon Dioxide 31 H (22-30) mmol/L BUN 17 (9-20) mg/dL Creatinine 1.42 H (0.7-1.3) mg/dL Glucose 150 H (65-110) mg/dL Calcium 9.6 (8.4-10.2) mg/dL Total Bilirubin 0.5 (0.2-1.3) mg/dL AST 30 (17-59) U/L ALT 17 (6-50) U/L Alkaline Phosphatase 77 (38-126) U/L Total Protein 7.2 (6.3-8.2) g/dL Albumin 3.9 (3.5-5.1) g/dL All other labs normal. <Tucker Barros, DO - Last Filed: 01/31/25 12:00>
--- NOTE | 2025-01-31 17:16 | PC.NURSE ---
This RN accidentally discharge this patient instead of [phone].
[2025-01-31] MEDS: PANTOPRAZOLE SODIUM IV 40 MG VIAL IV PUSH (17:53)
[2025-02-01] MEDS: SODIUM CHLORIDE 0.9% IV 1,000 ML 125 ML IV CONT (03:48)
[2025-02-01 04:41] VITALS: BP 134/76; PULSE 79; RESP 20; TEMP 36.3; O2SAT 96
[2025-02-01 08:18] LABS: Hematocrit 40.4 % (42.0-52.0); Hemoglobin 12.9 g/dL (14.0-18.0); Immature Granulocyte Percent A 0.2 % (0-0.5); Lymphocytes Absolute Auto 3.24 K/mm3 (0.9-3.2); Mean Corpuscular HGB Conc 31.9 g/dl (32-36); Mean Corpuscular Hemoglobin 28.7 pg (26-34); Mean Corpuscular Volume 90.0 fl (80-100); Nucleated Red Blood Cells Absolute Auto 0.000 K/mm3 (0.0-0.012); Nucleated Red Blood Cells Perc 0.0 % (0.0-0.2); Platelet Count Result 242 k/mm3 (150-375); Red Blood Count 4.49 M/mm3 (4.6-6.20); White Blood Count 8.9 K/mm3 (4.5-10.0)
[2025-02-01] MEDS: PANTOPRAZOLE SODIUM IV 40 MG VIAL IV PUSH (08:45)
[2025-02-01] MEDS: ENOXAPARIN 40 MG/0.4 ML SYRINGE SUB-Q (08:45)
[2025-02-01 09:05] LABS: Anion Gap 5 mmol/L (4-12); Blood Urea Nitrogen 15 mg/dL (9-20); Calcium 8.7 mg/dL (8.4-10.2); Carbon Dioxide 26 mmol/L (22-30); Chloride 106 mmol/L (98-107); Estimated CRCL calculation 67 ml/min; Estimated Glomerular Filt Rate 52; Glucose 103 mg/dL (65-110); Magnesium 2.3 mg/dL (1.6-2.3); Potassium 3.9 mmol/L (3.4-5.0); Sodium 137 mmol/L (137-145)
--- NOTE | 2025-02-01 12:25 | PM.IMPN ---
Progress Note: A&P Assessment and Plan (1) Small bowel obstruction: Code(s): K56.609 - Unspecified intestinal obstruction, unspecified as to partial versus complete obstruction Status: Acute Assessment and Plan: Patient presents with abdominal pain and found to have SBO. He has a hx of inguinal and umbilical hernia repairs. NGT placed. General surgery consulted. NPO. IV fluids started. Ice chips okay. Serial abd exams show improvement. Repeat KUB reviewed personally showing improvement but offical read pending. SBFT planned. (2) Essential hypertension: Code(s): I10 - Essential (primary) hypertension Status: Acute Assessment and Plan: BP noted and remains well controlled. NPO. Home meds held. Hydralazine available prn for markedly elevated BP. (3) BPH (benign prostatic hyperplasia): Code(s): N40.0 - Benign prostatic hyperplasia without lower urinary tract symptoms Status: Acute Assessment and Plan: Patient with hx of BPH and imaging showing a severely enlarged prostate On finasteride which will hold due to NPO status Monitor for urine retention Plan DVT prophylaxis - Lovenox Code status - Full Subjective Date/time seen: 02/01/25 12:25 Interval history: 54yo male with history of BPH, prior kidney stones and HTN who returns to the ED for persistent complaints of abdominal pain. Feels a lot better. Walking in the halls. +Flatus and +BMs . Exam Narrative: AF 97.3 134/76 79 20 96% ra Gen - NARD Chest - CTA bilaterally CV - RRR S1/S2 Abd - soft, NT/ND Ext - no pedal edema. Psych - normal mood and affect. Skin - warm and dry. Objective Data Vital Signs Vital Signs: Vital Signs - 24 hr 01/31/25 14:00 01/31/25 20:00 01/31/25 21:16 Temperature 98 F 98.2 F Pulse Rate 89 81 Respiratory Rate 16 18 Blood Pressure 130/63 144/84 H Pulse Oximetry 99 94 Oxygen Delivery Room Air 02/01/25 04:41 Temperature 97.3 F L Pulse Rate 79 Respiratory Rate 20 Blood Pressure 134/76 Pulse Oximetry 96 Oxygen Delivery Intake/Output Intake/Output: Intake & Output 01/29/25 01/30/25 01/31/25 02/01/25 23:59 23:59 23:59 23:59 Intake Total 2000 1000 Output Total 775 500 Balance 1225 500 Meds/Results Medications: Active Medications Generic Name Dose Route Start Last Admin Trade Name Freq PRN Reason Stop Dose Admin Benzocaine 1 lozenge 02/01/25 11:01 Benzocaine/Menthol (*Bkc) 18 Ea Lozenge PO PRN PRN Sore Throat Enoxaparin Sodium 40 mg 02/01/25 09:00 Enoxaparin 40 Mg/0.4 Ml Syringe SUB-Q DAILY JESS Hydralazine HCl 10 mg 01/31/25 11:30 Hydralazine Hcl 20 Mg/Ml Vial IV PUSH Q8H PRN Blood Pressure - High Sodium Chloride 1,000 mls @ 70 mls/hr 01/31/25 09:35 02/01/25 03:48 Normal Saline Iv IV CONT 125 mls/hr .[id number] JESS Administration Morphine Sulfate 4 mg 01/31/25 09:34 01/31/25 21:39 Morphine Sulfate (*Crx) 4 Mg/Ml Inj IV PUSH 4 mg Q2H PRN Administration Pain Rated 7-10 Ondansetron HCl 4 mg 01/31/25 09:34 Ondansetron Inj 4 Mg/2 Ml Vial IV PUSH Q4H PRN Nausea Pantoprazole Sodium 40 mg 02/01/25 09:00 Pantoprazole Sodium Iv 40 Mg Vial IV PUSH QAM JESS Phenol 1 spray 01/31/25 08:36 01/31/25 09:04 Phenol/Sod Pheno [place] (*Bkc) MUCOUS MEM 1 spray PRN PRN Administration Sore Throat Radiology Results: ITS Impressions Abdomen/Pelvis CT 01/31/25 07:47 IMPRESSION: 1. Small bowel obstruction with transition in the mid abdomen. 2: Small amount of free fluid in the abdomen and pelvis. No abscess. 3: Severely enlarged prostate gland. Labs Labs: Laboratory Results - last 24 hr 02/01/25 08:12 WBC 8.9 RBC 4.49 L Hgb 12.9 L Hct 40.4 L MCV 90.0 MCH 28.7 MCHC 31.9 L RDW 14.6 H Plt Count 242 MPV 11.0 H Immature Gran % (Auto) 0.2 Neut % (Auto) 49.0 Lymph % (Auto) 36.4 [place] % (Auto) 11.1 H Eos % (Auto) 3.1 Baso % (Auto) 0.2 Lymph # (Auto) 3.24 H [place] # (Auto) 1.0 H Eos # (Auto) 0.3 Baso # (Auto) 0.0 Abs Immat Gran (auto) 0.02 Absolute Neuts (auto) 4.4 Absolute Nucleated RBC 0.000 Nucleated RBC % 0.0 Sodium 137 Potassium 3.9 Chloride 106 Carbon Dioxide 26 Anion Gap 5 BUN 15 Creatinine 1.43 H Estim Creat Clear Calc 67 Estimated GFR 52 L Glucose 103 Calcium 8.7 Magnesium 2.3
--- NOTE | 2025-02-01 12:42 | PM.PNGS ---
Progress Note: A&P Assessment and Plan (1) Small bowel obstruction: Code(s): K56.609 - Unspecified intestinal obstruction, unspecified as to partial versus complete obstruction Status: Acute Assessment and Plan: - CTAP showing dilated small bowel and decompressed small bowel with likely transition point in the mid abdomen consistent with SBO. Patient does have a history of an umbilical hernia [place] [address] Johnson. Discussed the diagnosis with the patient and the most likely etiologies. Patient has NGT in place. Will continue with decompression at this time, poss SBFT vs dx lap. - NPO - NGT clamped during SBFT today. - IVF - Monitor for ROBF, reports BM and flatus over interval - SBFT today - Remainder of cares per primary team - Thank you for the consult, surgery will follow Dispo: SBFT today. If normal transit time to colon and patient continues having BMs, will remove NGT and advance to CLD A&P discussed with Dr. Abdul Subjective Subjective Date/Time Seen: 02/01/25 12:42 Interval history: NAEON. NGT with minimal output overnight, small amount in canister that appears to be mostly salivary secretions. Reports having a BM last night and passing flatus. Abdomen less distended and nontender today. Will plan for SBFT today Review of Systems Review of Systems: 12 point ROS negative except HPI Exam Narrative: General: Awake, alert, no acute distress HEENT: NC/AT, mucous membranes pink and moist, NGT in place Neck: No masses or swelling, JVD Heart: Regular rate, HDS Lungs: Symmetric expansion, no IWOB, on RA Abdomen: soft, NTTP, mildly distended, improving, non peritoneal Extremities: Moves all, normal inspection Psych: normal affect, normal mood, normal judgment Objective Data Vital Signs Vital Signs: Vital Signs - 24 hr 01/31/25 14:00 01/31/25 20:00 01/31/25 21:16 Temperature 98 F 98.2 F Pulse Rate 89 81 Respiratory Rate 16 18 Blood Pressure 130/63 144/84 H Pulse Oximetry 99 94 Oxygen Delivery Room Air 02/01/25 04:41 Temperature 97.3 F L Pulse Rate 79 Respiratory Rate 20 Blood Pressure 134/76 Pulse Oximetry 96 Oxygen Delivery Intake/Output Intake/Output: Intake & Output 01/29/25 01/30/25 01/31/25 02/01/25 23:59 23:59 23:59 23:59 Intake Total 1999 999 Output Total 775 500 Balance 1225 500 Meds/Results Medications: Active Medications Generic Name Dose Route Start Last Admin Trade Name Freq PRN Reason Stop Dose Admin Benzocaine 1 lozenge 02/01/25 11:01 Benzocaine/Menthol (*Bkc) 18 Ea Lozenge PO PRN PRN Sore Throat Enoxaparin Sodium 40 mg 02/01/25 09:00 Enoxaparin 40 Mg/0.4 Ml Syringe SUB-Q DAILY JESS Hydralazine HCl 10 mg 01/31/25 11:30 Hydralazine Hcl 20 Mg/Ml Vial IV PUSH Q8H PRN Blood Pressure - High Sodium Chloride 1,000 mls @ 70 mls/hr 01/31/25 09:35 02/01/25 03:48 Normal Saline Iv IV CONT 125 mls/hr .[id number] JESS Administration Morphine Sulfate 4 mg 01/31/25 09:34 01/31/25 21:39 Morphine Sulfate (*Crx) 4 Mg/Ml Inj IV PUSH 4 mg Q2H PRN Administration Pain Rated 7-10 Ondansetron HCl 4 mg 01/31/25 09:34 Ondansetron Inj 4 Mg/2 Ml Vial IV PUSH Q4H PRN Nausea Pantoprazole Sodium 40 mg 02/01/25 09:00 Pantoprazole Sodium Iv 40 Mg Vial IV PUSH QAM JESS Phenol 1 spray 01/31/25 08:36 01/31/25 09:04 Phenol/Sod Pheno [place] (*Bkc) MUCOUS MEM 1 spray PRN PRN Administration Sore Throat Radiology Results: ITS Impressions Abdomen/Pelvis CT 01/31/25 07:47 IMPRESSION: 1. Small bowel obstruction with transition in the mid abdomen. 2: Small amount of free fluid in the abdomen and pelvis. No abscess. 3: Severely enlarged prostate gland. Labs Labs: Laboratory Results - last 24 hr 02/01/25 08:12 WBC 8.9 RBC 4.49 L Hgb 12.9 L Hct 40.4 L MCV 90.0 MCH 28.7 MCHC 31.9 L RDW 14.6 H Plt Count 242 MPV 11.0 H Immature Gran % (Auto) 0.2 Neut % (Auto) 49.0 Lymph % (Auto) 36.4 [place] % (Auto) 11.1 H Eos % (Auto) 3.1 Baso % (Auto) 0.2 Lymph # (Auto) 3.24 H [place] # (Auto) 1.0 H Eos # (Auto) 0.3 Baso # (Auto) 0.0 Abs Immat Gran (auto) 0.02 Absolute Neuts (auto) 4.4 Absolute Nucleated RBC 0.000 Nucleated RBC % 0.0 Sodium 137 Potassium 3.9 Chloride 106 Carbon Dioxide 26 Anion Gap 5 BUN 15 Creatinine 1.43 H Estim Creat Clear Calc 67 Estimated GFR 52 L Glucose 103 Calcium 8.7 Magnesium 2.3
[2025-02-01 14:00] VITALS: BP 153/82; PULSE 87; RESP 18; TEMP 36.3; O2SAT 100
[2025-02-01 21:00] VITALS: BP 129/97; PULSE 104; RESP 20; TEMP 37.1; O2SAT 99
[2025-02-02 05:47] VITALS: BP 147/85; PULSE 85; RESP 18; TEMP 36.9; O2SAT 100
[2025-02-02] MEDS: PANTOPRAZOLE SODIUM IV 40 MG VIAL IV PUSH (08:21)
[2025-02-02] MEDS: FINASTERIDE 5 MG TABLET PO (08:23)
--- NOTE | 2025-02-02 13:09 | PM.PNGS ---
Progress Note: A&P Assessment and Plan (1) Small bowel obstruction: Code(s): K56.609 - Unspecified intestinal obstruction, unspecified as to partial versus complete obstruction Status: Acute Assessment and Plan: - CTAP showing dilated small bowel and decompressed small bowel with likely transition point in the mid abdomen consistent with SBO. Patient does have a history of an umbilical hernia repair in [address] Johnson. Discussed the diagnosis with the patient and the most likely etiologies. - SBFT 02/01 with contrast to colon in 30 minutes, tolerating CLD - Advance to soft regular diet - Continues to have bowel function - Remainder of cares per primary team - Thank you for the consult, surgery will follow - Likely DC home if patient tolerates regular diet Dispo: Advance to soft regular diet. DC home if patient tolerates diet. A&P discussed with Dr. Abdul Subjective Subjective Date/Time Seen: 02/02/25 13:09 Interval history: NAEON. SBFT yesterday with contrast to colon in 30 minutes. NGT removed and advanced to CLD, tolerating without N/V. Continues to have liquid BMs. Abdomen soft, less distended, nontender. Will advance to regular soft diet. Review of Systems Review of Systems: 12 point ROS negative except HPI Exam Narrative: General: Awake, alert, no acute distress HEENT: NC/AT, mucous membranes pink and moist Neck: No masses or swelling, JVD Heart: Regular rate, HDS Lungs: Symmetric expansion, no IWOB, on RA Abdomen: soft, NTTP, mildly distended, improving, non peritoneal Extremities: Moves all, normal inspection Psych: normal affect, normal mood, normal judgment Objective Data Vital Signs Vital Signs: Vital Signs - 24 hr 02/01/25 14:00 02/01/25 20:00 02/01/25 21:00 Temperature 97.3 F L 98.8 F Pulse Rate 87 104 H Respiratory Rate 18 20 Blood Pressure 153/82 H 129/97 H Pulse Oximetry 100 99 Oxygen Delivery Room Air 02/02/25 05:47 Temperature 98.5 F Pulse Rate 85 Respiratory Rate 18 Blood Pressure 147/85 H Pulse Oximetry 100 Oxygen Delivery Intake/Output Intake/Output: Intake & Output 01/30/25 01/31/25 02/01/25 02/02/25 23:59 23:59 23:59 23:59 Intake Total 1999 2295.4 118 Output Total 775 500 Balance 1225 1795.4 118 Meds/Results Medications: Active Medications Generic Name Dose Route Start Last Admin Trade Name Freq PRN Reason Stop Dose Admin Amlodipine Besylate 5 mg 02/02/25 09:00 02/02/25 08:23 Amlodipine Besylate 5 Mg Tablet PO 5 mg DAILY JESS Administration Benzocaine 1 lozenge 02/01/25 11:01 Benzocaine/Menthol (*Bkc) 18 Ea Lozenge PO PRN PRN Sore Throat Enoxaparin Sodium 40 mg 02/01/25 09:00 02/01/25 08:45 Enoxaparin 40 Mg/0.4 Ml Syringe SUB-Q 40 mg DAILY JESS Administration Finasteride 5 mg 02/02/25 09:00 02/02/25 08:23 Finasteride 5 Mg Tablet PO 5 mg DAILY JESS Administration Hydralazine HCl 10 mg 01/31/25 11:30 Hydralazine Hcl 20 Mg/Ml Vial IV PUSH Q8H PRN Blood Pressure - High Sodium Chloride 1,000 mls @ 70 mls/hr 01/31/25 09:35 02/01/25 23:27 Normal Saline Iv IV CONT Not Given .[id number] JESS Morphine Sulfate 4 mg 01/31/25 09:34 01/31/25 21:39 Morphine Sulfate (*Crx) 4 Mg/Ml Inj IV PUSH 4 mg Q2H PRN Administration Pain Rated 7-10 Ondansetron HCl 4 mg 01/31/25 09:34 Ondansetron Inj 4 Mg/2 Ml Vial IV PUSH Q4H PRN Nausea Pantoprazole Sodium 40 mg 02/01/25 09:00 02/02/25 08:21 Pantoprazole Sodium Iv 40 Mg Vial IV PUSH 40 mg QAM JESS Administration Phenol 1 spray 01/31/25 08:36 01/31/25 09:04 Phenol/Sod Pheno [place]iddle (*Bkc) MUCOUS MEM 1 spray PRN PRN Administration Sore Throat Radiology Results: ITS Impressions Abdomen/Pelvis CT 01/31/25 07:47 IMPRESSION: 1. Small bowel obstruction with transition in the mid abdomen. 2: Small amount of free fluid in the abdomen and pelvis. No abscess. 3: Severely enlarged prostate gland. Abdomen X-Ray 02/01/25 15:56 Impression: 1. Small bowel obstruction Upper GI and Small Bowel X-Ray 02/01/25 16:50 IMPRESSION: Findings may consistent with a partial small bowel obstruction or resolving small bowel obstruction. Probable transition point in the mid to distal small bowel. Correlation with CT enteroclysis suggested as clinically warranted
--- NOTE | 2025-02-02 13:30 | P.DS_ITS ---
DS: Admitting Diagnosis Discharge Date 02/02/25 Admitting Diagnosis Abdominal pain DS: Discharge Diagnosis Discharge Diagnosis (1) Small bowel obstruction: Code(s): K56.609 - Unspecified intestinal obstruction, unspecified as to partial versus complete obstruction Status: Acute (2) Essential hypertension: Code(s): I10 - Essential (primary) hypertension Status: Acute (3) BPH (benign prostatic hyperplasia): Code(s): N40.0 - Benign prostatic hyperplasia without lower urinary tract symptoms Status: Acute (4) Elevated serum creatinine: Code(s): R79.89 - Other specified abnormal findings of blood chemistry Status: Acute DS: Summary Hospital Course Reason for hospitalization: 54yo male with history of BPH, prior kidney stones and HTN who returns to the ED for persistent complaints of abdominal pain. Please see H&P for details. Hospital Course: Patient presents with abdominal pain and found to have SBO. He has a hx of inguinal and umbilical hernia repairs. NGT placed. General surgery consulted. NPO. IV fluids started. Cr was elevated at 1.4-1.5 range but stable and without change with IV fluids. Chart review showing Cr was 1.4 as far back as 2019. Either patient with CKD or he has a higher Cr due to his muscle mass. Serial abd exams show improvement. Repeat KUB showing SOB but clinically improved so SBFT ordered. SBFT showing evidence of partial SBO with probable transition point in the mid to distal small bowel. Blood pressure noted and remained well controlled. Patient with hx of BPH and imaging showing a severely enlarged prostate. No evidence of urine retention. Anti-hypertensive medications and finasteride resumed when able to eat. He was started on clear liquid diet and advanced as tolerated. He did well with diet advance. He overall did well and was able to be discharged home on 02/02/25. Discharge instructions discussed and all questions answered. Status at Discharge Cognitive/behavioral status at discharge: stable Time Spent with Patient Time attestation: Total time spent providing and/or coordinating discharge services: 34 minutes Time spent: Greater than 30 minutes Exam Narrative: AF 98.5 147/85 85 18 100% ra Gen - NARD Chest - CTA bilaterally CV - RRR S1/S2 Abd - soft, NT/ND, +BS Ext - no pedal edema. Psych - normal mood and affect. Skin - warm and dry. Discharge Plan Discharge Attending physician on discharge: Epi Flores Consulting providers: Avi Abdul Discharging Clinician: Epi Flores Anticipated Discharge Date/Time: 02/02/25 13:35 Patient Disposition: Home Activity: as tolerated Diet: heart healthy and other - see discharge instructions Discharge Instructions: Heart health diet with soft foods Contact your doctor or call 911 and come to the Emergency Room if you have increasing abdominal pain or other worrisome symptoms. Avoid NSAIDs (ibuprofen, naproxen, Aleve). Tylenol is safe to take. Follow-up with your primary care provider in 1-2 weeks. Please call for appointment. Thank you for using [facility] for your health care needs. Patient Instructions: Antibiotic Form Patient Language: Divehi Stand Alone Forms: General Discharge Information Follow-up/Referrals: Kurtis Stanton MD [Primary Care Provider, Family Practice] - Call for Appointment Avi Abdul DO [Physician, General Surgery] - Other Referral Note: Follow-up as needed Discharge Medications: No Action finasteride 5 mg tablet 5 mg PO DAILY amlodipine [Norvasc] 5 mg tablet 5 mg PO DAILY Qty: 90 2RF trazodone 50 mg tablet 50 mg PO QHS PRN (Reason: sleep) Qty: 30 2RF Rx Instructions: take 1-2 hours before bed ascorbic acid (vitamin C) 1,000 mg Tablet 1 g PO DAILY cholecalciferol (vitamin D3) 125 mcg (5,000 unit) Capsule 125 mcg PO DAILY cyanocobalamin (vitamin B-12) 2,500 mcg Tablet 2,500 mcg PO DAILY alum-mag hydroxide-simeth [Maalox Advanced] 200-200-20 mg/5 mL suspension 15 ml PO QID PRN (Reason: indigestion) Qty: 3000 0RF Rx Instructions: administer between meals and at bedtime famotidine [Pepcid] 20 mg tablet 20 mg PO BID Qty: 20 0RF ondansetron 4 mg tablet,disintegrating 4 mg PO Q8H PRN (Reason: nausea and vomiting) Qty: 10 0RF Date of admission: 01/31/25 13:24 Primary Care Provider: Kurtis Stanton Admitting Provider: Epi Floers Attending physician on admission: Epi Flores Condition: Stable Hospitalist MIPS Heart Failure (Exclusion) Patient has history of Heart Transplant or Left Ventricular Assistive Device?: No IF YES, STOP HERE Heart Failure (Qualifier) Patient has current or prior documentation of LVEF less than or equal to 40%, or mod/servere depressed LVSF?: No IF NO, STOP HERE
== END 2025-02-02 14:30 | disposition home or self-care (01) | DRG 390 ==
LOC: ANHED 07:07 → ANH3MEDSUR 10:29
PROVIDERS: Student in an Organized Health Care Education/Training Program; Admitting Provider Internal Medicine; Emergency Provider Emergency Medicine; PCP Family Medicine; Visit Provider Internal Medicine
DX: K56.609 Unspecified intestinal obstruction, unspecified as to partial versus complete obstruction (principal); N40.0 Benign prostatic hyperplasia without lower urinary tract symptoms; I10 Essential (primary) hypertension; E78.2 Mixed hyperlipidemia; F17.290 Nicotine dependence, other tobacco product, uncomplicated; K21.9 Gastro-esophageal reflux disease without esophagitis; R79.89 Other specified abnormal findings of blood chemistry
CPT/HCPCS: 36415; 74019; 74177; 74250; 80048; 80053; 81001; 83690; 83735; 84484; 85025; 93005; 96361; 96374; 96375; 96376; 99284; 99285; A9270; G0378; J1650; J1885; J2270; J2405; J2470; J7030; J7120; Q9967